=== PATIENT | female | born 1965 | race Caucasian/White ===

== ENCOUNTER → 2019-01-15 | Outpatient (REF) | payer MEDICARE, MEDICAID ==
[~2019-01-15] MED LIST: CIPR500T89 PO; FLAG500T PO; KLON1TAB PO; OMEP40CA2 PO; ONDA-1 PO; QUES4POW2 PO; SIME80TA PO; TYLE325T5 PO; VANC250C PO
[2019-01-15 15:22] LABS: APPEARANCE, URINE HAZY (CLEAR); BACTERIA, URINE AUTO NEGATIVE (NEGATIVE); BILIRUBIN, URINE AUTO NEGATIVE (NEGATIVE); BLOOD, URINE BLOOD 1+ (NEGATIVE); COLOR, URINE YELLOW (YELLOW); GLUCOSE, URINE (UA) AUTO NEGATIVE (NEGATIVE); KETONE, URINE AUTO NEGATIVE (NEGATIVE); LEUKOCYTE ESTERASE, URINE AUTO 1+ (NEGATIVE); MUCUS, URINE SMALL (NEGATIVE); NITRITE, URINE AUTO NEGATIVE (NEGATIVE); PROTEIN, URINE AUTO NEGATIVE (NEGATIVE); RBC, URINE AUTO 1 /HPF (0-3); SPECIFIC GRAVITY URINE AUTO 1.019 (1.002-1.035); SQUAMOUS EPITHELIAL CELL UR AU 6 /HPF (0-6); UROBILINOGEN, URINE AUTO 0.2 mg/dL (0.0-2.0); WBC, URINE AUTO 6 /HPF (0-3)
[2019-01-15 15:23] LABS: BASO # 0.1 10^3/uL (0.0-0.2); BASO % 0.5 % (0.0-1.0); EOS # 0.3 10^3/uL (0.0-0.5); EOS % 2.4 % (0.0-3.0); HEMATOCRIT 48.6 % (36.0-47.0); HEMOGLOBIN 15.7 g/dl (12.0-15.5); LYMPH % 27.6 % (24.0-44.0); MEAN CORPUSCULAR HEMOGLOBIN 28.5 pg (27.0-33.0); MEAN CORPUSCULAR HGB CONC 32.3 g/dl (32.0-36.5); MEAN CORPUSCULAR VOLUME 88.4 fl (80.0-96.0); MONO # 0.6 10^3/uL (0.0-0.8); MONO % 5.7 % (0.0-5.0); NEUTROPHILS # 6.8 10^3/uL (1.5-8.5); NEUTROPHILS % 63.3 % (36.0-66.0); PLATELET COUNT, AUTOMATED 345 10^3/uL (150-450); WHITE BLOOD COUNT 10.7 10^3/uL (4.0-10.0)
[2019-01-15 15:30] LABS: ALBUMIN 4.1 GM/DL (3.2-5.2); BILIRUBIN,TOTAL 0.5 MG/DL (0.2-1.0); CALCIUM LEVEL 9.8 MG/DL (8.5-10.1); CHOLESTEROL RISK RATIO 7.428 (<5); CREATININE FOR GFR 1.02 MG/DL (0.55-1.30); FREE T4 0.93 NG/DL (0.76-1.46); GLOMERULAR FILTRATION RATE 59.9 (>51); POTASSIUM SERUM 4.2 MEQ/L (3.5-5.1); TOTAL PROTEIN 8.6 GM/DL (6.4-8.2)
[2019-01-15 15:39] LABS: HEMOGLOBIN A1c 6.1 %; TOTAL 25(OH) VITAMIN D 13.5 NG/ML (30.0-100.0)
== END ==
LOC: M LAB REF 14:27
PROVIDERS: ATTEND Nurse Practitioner Family
DX: Z13.9 Encounter for screening, unspecified (principal); Z79.899 Other long term (current) drug therapy

== ENCOUNTER → 2019-01-20 | Outpatient (CLI) | payer MEDICAID, MEDICARE ==
--- NOTE | 2019-01-20 16:05 | REPMRS ---
Patient History The patient states she has not had a clinical breast exam in over a year. No known family history of cancer. Took hormonal contraceptives for 2 years. Digital Mammo Screening Bilat: January 20, 2019 - Exam #: [id number] Bilateral CC and MLO view(s) were taken. Technologist: Mary Lange, Technologist Prior study comparison: March 10, 2013, bilateral digital mammo screening bilat performed at [facility]. February 02, 2009, bilateral digital woman screen mammo performed at [facility]. FINDINGS: There are scattered fibroglandular densities. There has been no change in the appearance of the mammogram from the prior studies. There is a mild amount of scattered fibroglandular density which is fairly symmetric. There is no interval development of dominant mass, architectural distortion, or grouped microcalcification suggestive of malignancy. Assessment: BI-RADS/ACR category 1 mammogram. Negative Mammogram. Recommendation Routine screening mammogram of both breasts in 1 year (for women over age 40). This patient's Lifetime Breast Cancer Risk is estimated at 7.7 %. This mammogram was interpreted with the aid of an FDA-approved computer-aided dectection system. Electronically Signed By: Justin Saini MD 01/20/19 [id number]
== END ==
LOC: M RAD 11:29
PROVIDERS: ATTEND Nurse Practitioner Family
DX: Z12.39 Encounter for other screening for malignant neoplasm of breast (principal)

== ENCOUNTER 2019-03-11 01:28 | Observation (INO) | payer MEDICARE ==
[~2019-03-11] VITALS: Ht 154.9 cm; Wt 71.1 kg
[2019-03-11] MEDS ORDERED: GABA-845 PO (01:42)
[2019-03-11] MEDS ORDERED: MORPHINE 4 MG/ML 1ML VIAL/SYRINGE (J2270) IV ONE (02:00)
[2019-03-11 02:11] LABS: BASO # 0.1 10^3/uL (0.0-0.2); BASO % 0.3 % (0.0-1.0); EOS % 0.2 % (0.0-3.0); HEMATOCRIT 47.4 % (36.0-47.0); HEMOGLOBIN 15.1 g/dl (12.0-15.5); LYMPH # 1.6 10^3/uL (1.5-5.0); LYMPH % 8.2 % (24.0-44.0); MEAN CORPUSCULAR HGB CONC 31.9 g/dl (32.0-36.5); MEAN CORPUSCULAR VOLUME 87.9 fl (80.0-96.0); MONO # 0.7 10^3/uL (0.0-0.8); MONO % 3.6 % (0.0-5.0); NEUTROPHILS # 17.4 10^3/uL (1.5-8.5); NEUTROPHILS % 87.2 % (36.0-66.0); PLATELET COUNT, AUTOMATED 351 10^3/uL (150-450); RED BLOOD COUNT 5.39 10^6/uL (4.00-5.40); WHITE BLOOD COUNT 19.9 10^3/uL (4.0-10.0)
[2019-03-11] MEDS: NS 1,000 ML IV SCH ×4 (02:14→21:25)
[2019-03-11 02:42] LABS: CALCIUM LEVEL 9.7 MG/DL (8.5-10.1); CREATININE FOR GFR 1.08 MG/DL (0.55-1.30); GLOMERULAR FILTRATION RATE 56.1 (>51); POTASSIUM SERUM 5.1 MEQ/L (3.5-5.1)
[2019-03-11] MEDS ORDERED: ISOVUE-370 76% 100ML VIAL (Q9967) As Ordered ONE (02:44)
--- NOTE | 2019-03-11 03:48 | REPVR ---
PROCEDURE INFORMATION: Exam: CT Cervical Spine Without Contrast Exam date and time: 03/11/2019 2:52 AM Age: 53 years old Clinical history: Neck pain; Additional info: Trauma TECHNIQUE: Imaging protocol: Computed tomography images of the cervical spine without contrast. Radiation optimization: All CT scans at this facility use at least one of these dose optimization techniques: automated exposure control; mA and/or kV adjustment per patient size (includes targeted exams where dose is matched to clinical indication); or iterative reconstruction. COMPARISON: No relevant prior studies available. FINDINGS: Vertebrae: No fracture or malalignment. Discs/Spinal canal/Neural foramina: Mild discogenic degenerative changes. No spinal stenosis. Advanced facet DJD without significant foraminal stenosis. Soft tissues: Unremarkable. Lungs: Lung apices are normal. IMPRESSION: 1. No fracture or malalignment. 2. Degenerative spondylosis in the cervical spine. Electronically signed by: Vasyl Rider On 03/11/2019 03:48:07 AM
--- NOTE | 2019-03-11 03:51 | REPVR ---
PROCEDURE INFORMATION: Exam: CT Head Without Contrast Exam date and time: 03/11/2019 2:52 AM Age: 53 years old Clinical history: Pain; Headache; Additional info: Trauma TECHNIQUE: Imaging protocol: Computed tomography of the head without contrast. Radiation optimization: All CT scans at this facility use at least one of these dose optimization techniques: automated exposure control; mA and/or kV adjustment per patient size (includes targeted exams where dose is matched to clinical indication); or iterative reconstruction. COMPARISON: No relevant prior studies available. FINDINGS: Brain: There is generalized cerebellar atrophy. No significant supratentorial atrophy. Small cyst in the left basal ganglia. No intracranial hemorrhage or mass effect. No signs of a recent infarct. Ventricles: Normal. No ventriculomegaly. Bones/joints: Unremarkable. No acute fracture. Sinuses: Visualized sinuses are unremarkable. No fluid levels. Mastoid air cells: Visualized mastoid air cells are well aerated. Soft tissues: Unremarkable. IMPRESSION: 1. Isolated cerebellar atrophy. 2. No acute intracranial abnormality. Electronically signed by: Vasyl Rider On 03/11/2019 03:51:44 AM
--- NOTE | 2019-03-11 03:59 | REPVR ---
PROCEDURE INFORMATION: Exam: CT Abdomen And Pelvis With Contrast Exam date and time: 03/11/2019 2:52 AM Age: 53 years old Clinical history: Abdominal pain; Generalized; Additional info: Trauma TECHNIQUE: Imaging protocol: Computed tomography of the abdomen and pelvis with intravenous contrast. Radiation optimization: All CT scans at this facility use at least one of these dose optimization techniques: automated exposure control; mA and/or kV adjustment per patient size (includes targeted exams where dose is matched to clinical indication); or iterative reconstruction. Contrast material: ISOVUE 370; Contrast volume: 100 ml; Contrast route: IV; COMPARISON: CT ABD PELVIS WITH CONTRAST 08/07/2012 9:36 PM FINDINGS: Lungs: Hypoventilatory changes in the lung bases. Liver: Normal. No mass. Gallbladder and bile ducts: Normal. No calcified stones. No ductal dilation. Pancreas: Normal. No ductal dilation. Spleen: Normal. No splenomegaly. Adrenals: Normal. No mass. Kidneys and ureters: Normal. No hydronephrosis. Stomach and bowel: Unremarkable. No obstruction. No mucosal thickening. Appendix: No evidence of appendicitis. Intraperitoneal space: Unremarkable. No free air. No significant fluid collection. Vasculature: Unremarkable. No abdominal aortic aneurysm. Lymph nodes: Unremarkable. No enlarged lymph nodes. Bladder: Unremarkable as visualized. Reproductive: Unremarkable as visualized. Bones/joints: Nondisplaced left eighth-10th rib fractures. Soft tissues: Small amount of subcutaneous gas in the left chest wall adjacent to the fractures. IMPRESSION: 1. Left 8th-10th rib fractures. 2. No acute findings in the abdomen or pelvis. Electronically signed by: Vasyl Rider On 03/11/2019 03:58:41 AM
--- NOTE | 2019-03-11 04:02 | REPVR ---
PROCEDURE INFORMATION: Exam: CT Lumbar Spine Without Contrast Exam date and time: 03/11/2019 2:52 AM Age: 53 years old Clinical history: Low back pain; Additional info: Trauma TECHNIQUE: Imaging protocol: Computed tomography images of the lumbar spine without contrast. Radiation optimization: All CT scans at this facility use at least one of these dose optimization techniques: automated exposure control; mA and/or kV adjustment per patient size (includes targeted exams where dose is matched to clinical indication); or iterative reconstruction. COMPARISON: MRI-Spine, L.S. without con 03/10/2013 12:19 PM FINDINGS: Vertebrae: No fracture or malalignment. Discs/Spinal canal/Neural foramina: Mild discogenic degenerative changes. No spinal stenosis or bony foraminal stenosis. Soft tissues: Unremarkable. IMPRESSION: No fracture or malalignment. Electronically signed by: Vasyl Rider On 03/11/2019 04:02:27 AM
--- NOTE | 2019-03-11 04:09 | REPVR ---
PROCEDURE INFORMATION: Exam: CT Chest With Contrast Exam date and time: 03/11/2019 2:52 AM Age: 53 years old Clinical history: Chest pain; Additional info: Trauma TECHNIQUE: Imaging protocol: Computed tomography of the chest with intravenous contrast. Radiation optimization: All CT scans at this facility use at least one of these dose optimization techniques: automated exposure control; mA and/or kV adjustment per patient size (includes targeted exams where dose is matched to clinical indication); or iterative reconstruction. Contrast material: ISOVUE 370; Contrast volume: 100 ml; Contrast route: IV; COMPARISON: No relevant prior studies available. FINDINGS: Lungs: Mild atelectasis in the lungs. No airspace consolidation or mass. Pleural space: Unremarkable. No pneumothorax. No pleural effusion. Heart: Unremarkable. No cardiomegaly. No pericardial effusion. Aorta: Unremarkable. No aortic aneurysm. Lymph nodes: Unremarkable. No enlarged lymph nodes. Bones/joints: Fractures of the left eighth-10th posterior lateral ribs. Small foci of subcutaneous emphysema adjacent to the left rib fractures. Soft tissues: Unremarkable. IMPRESSION: 1. Left eighth-10th posterior rib fractures. 2. No other acute findings. Electronically signed by: Vasyl Rider On 03/11/2019 04:09:33 AM
--- NOTE | 2019-03-11 04:12 | REPVR ---
PROCEDURE INFORMATION: Exam: CT Thoracic Spine Without Contrast Exam date and time: 03/11/2019 2:52 AM Age: 53 years old Clinical history: Pain in thoracic spine; Additional info: Trauma TECHNIQUE: Imaging protocol: Computed tomography images of the thoracic spine without contrast. Radiation optimization: All CT scans at this facility use at least one of these dose optimization techniques: automated exposure control; mA and/or kV adjustment per patient size (includes targeted exams where dose is matched to clinical indication); or iterative reconstruction. COMPARISON: No relevant prior studies available. FINDINGS: Vertebrae: No fracture or malalignment. Mild endplate degenerative changes. No destructive bone lesions. Discs/Spinal canal/Neural foramina: No spinal stenosis. Soft tissues: Unremarkable. IMPRESSION: No fracture or malalignment. Electronically signed by: Vasyl Rider On 03/11/2019 04:12:20 AM
--- NOTE | 2019-03-11 04:55 | HPEPDOC ---
[facility] Medical History & Physical Date of Admission Mar 11, 2019 Date of Service: Mar 11, 2019 Primary Care Physician: Aki Stevenson Attending Physician: MARVIN BURTON MD History and Physical TIME OF SERVICE: 6:10 AM CHIEF COMPLAINT: Fall HISTORY OF PRESENT ILLNESS: This is a 53-year-old female who presents for evaluation after having a fall. At her baseline she has an unsteady gait due to cerebral ataxia and uses a walker. She has been falling more frequently recently. Last night while trying to get ready for bed, she tripped and fell onto her left side as a result developed left sided flank pain. She denies having fevers or chills. She is also complaining of cough and myalgias. 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 ( Uses walker) Status post 2 Status post-tonsillectomy Chronic hypertension. Dyslipidemia SOCIAL HISTORY: She quit smoking several years ago. She lives alone FAMILY HISTORY: Emphysema. Epilepsy. Nephrolithiasis COPD CAD ALLERGIES: Please see below. HOME MEDICATIONS: Please see below. PHYSICAL EXAMINATION: VITAL SIGNS: Please see below. GENERAL APPEARANCE: Nourished, well-developed, not in apparent distress HEENT: Normocephalic, atraumatic Mucous membranes moist and pink CARDIOVASCULAR: Rate and rhythm. No murmurs, rubs or gallops LUNGS: Clear to auscultation bilaterally. Based coughing occasionally ABDOMEN: Positive bowel sounds. Abdomen soft and nontender on palpation MUSCULOSKELETAL: Alert and oriented to person, place, time, able to understand and follow commands INTEGUMENT: She does not appear pale or jaundice NEUROLOGICAL: Cranial nerves II-12 are grossly intact. Speech is slowly dysar thric PSYCHIATRIC:, Alert and oriented to person & place. She is able to understand and follow commands LABORATORY DATA: See below. IMAGING: CT Thoracic spine " IMPRESSION: No fracture or malalignment. " CT Lumbar spine. " IMPRESSION: No fracture or malalignment. " CT head " IMPRESSION: 1. Isolated cerebellar atrophy. 2. No acute intracranial abnormality. " CT chest " IMPRESSION: 1. Left eighth-10th posterior rib fractures. 2. No other acute findings. " CT cervical spine " IMPRESSION: 1. No fracture or malalignment. 2. Degenerative spondylosis in the cervical spine. " CT abdomen and pelvis " IMPRESSION: 1. Left 8th-10th rib fractures. 2. No acute findings in the abdomen or pelvis. " ASSESSMENT: Ms. Walls is a 53-year-old with a past medical history cerebellar ataxia who will be admitted for management of pain related to left rib fractures. PLAN: 1.Left eighth to 10th rib fracture secondary to mechanical fall She has an unsteady gait at baseline Plan: Admit to medical floor/fall precautions/physical therapy eval/ orthostats / PFS consult to determine if she needs temp replacement / tramadol and ibuprofen for pain control/is and this prompted tree 2.Leukocytosis Possibly due to viral URI. Plan: Follow-up is better panel/Tessalon pearls / Monitor vitals 3.Chronic hypertension. Plan: Continue lisinopril 4.Dyslipidemia. Plan: Continue statin DVT prophylaxis with Lovenox. Disposition likely home after less than 2 midnight stay Vital Signs Vital Signs Date Time Temp Pulse Resp B/P (MAP) Pulse Ox O2 Delivery O2 Flow Rate FiO2 03/11/19 02:45 140/76 (97) 03/11/19 02:43 82 90 03/11/19 02:30 18 03/11/19 01:37 98.2 Room Air Laboratory Data Labs 24H Laboratory Tests 2 03/11/19 02:06: Immature Granulocyte % (Auto) 0.5, Neutrophils (%) (Auto) 87.2H, Lymphocytes (%) (Auto) 8.2L, Monocytes (%) (Auto) 3.6, Eosinophils (%) (Auto) 0.2, Basophils (%) (Auto) 0.3, Neutrophils # (Auto) 17.4H, Lymphocytes # (Auto) 1.6, Monocytes # (Auto) 0.7, Eosinophils # (Auto) 0.0, Basophils # (Auto) 0.1, Nucleated Red Blood Cells % (auto) 0.0, Anion Gap 7L, Glomerular Filtration Rate 56.1, Calcium Level 9.7 CBC/BMP Laboratory Tests 03/11/19 02:06 Home Medications Scheduled Benzonatate (Benzonatate) 100 Mg Capsule, 200 MG PO Q8H Ergocalciferol (Vitamin D2) (Vitamin D2) 50,000 Unit Capsule, 50,000 UNIT PO 1XWK FRIDAY MORNINGS Gabapentin (Gabapentin) 300 Mg Capsule, 300 MG PO TID Lisinopril (Lisinopril) 10 Mg Tablet, 10 MG PO DAILY Rosuvastatin Calcium (Crestor) 10 Mg Tablet, 10 MG PO DAILY Scheduled PRN Acetaminophen (Acetaminophen) 325 Mg Tablet, 650 MG PO Q4H PRN for PAIN OR FEVER Clonazepam (Clonazepam) 1 Mg Tablet, 1 MG PO BID PRN for ANXIETY Tramadol HCl (Tramadol HCl ER) 200 Mg Tab.er.24h, 200 MG PO DAILYPRN PRN for pain Allergies Coded Allergies: Sulfa (Sulfonamide Antibiotics) (Verified Allergy, Unknown, 03/11/19) A-FIB/CHADSVASC A-FIB History Current/History of A-Fib/PAF?: No Current PO Anticoag Therapy: No MARVIN BURTON MD Mar 11, 2019 04:55
[2019-03-11] MEDS ORDERED: ACET-897 PO (05:00)
[2019-03-11] MEDS ORDERED: VITA50005 PO (05:00)
[2019-03-11] MEDS ORDERED: ACETAMINOPHEN TAB 650MG DOSE (2X325MG) PO PRN (05:00)
[2019-03-11] MEDS ORDERED: GABA-843 PO (05:00)
[2019-03-11] MEDS ORDERED: CRES10TA PO (05:00)
[2019-03-11] MEDS ORDERED: LISI10TA4 PO (05:00)
[2019-03-11] MEDS ORDERED: CLON1TAB8 PO (05:00)
[2019-03-11 05:45] VITALS: BP 139/93
[2019-03-11] MEDS: traMADol ER 100MG TABLET (ULTRAM ER) PO SCH (05:51)
[2019-03-11 06:38] LABS: INFLUENZA A AMPLIFICATION NEGATIVE (NEGATIVE); INFLUENZA B AMPLIFICATION NEGATIVE (NEGATIVE)
[2019-03-11] MEDS ORDERED: clonazePAM 1 MG TAB PO PRN (06:45)
[2019-03-11] MEDS: BENZONATATE 100 MG CAP PO SCH ×3 (06:58→21:24)
[2019-03-11] MEDS: IBUPROFEN 600 MG TAB PO SCH ×2 (07:52→21:25)
[2019-03-11] MEDS: ROSUVASTATIN 10 MG TAB (CRESTOR) PO SCH (07:52)
[2019-03-11] MEDS: GABAPENTIN 300 MG CAP PO SCH ×3 (07:52→21:24)
[2019-03-11] MEDS: lisinopriL 10 MG TAB PO SCH (07:54)
[2019-03-11] MEDS ORDERED: MORPHINE 2 MG/ML 1ML VIAL (J2270) IV PRN (09:45)
[2019-03-11 12:00] VITALS: BP_SYST 166; BP_SYST 168; BP_SYST 171; BP_DIAS 100; BP_DIAS 108; BP_DIAS 99
[2019-03-11] MEDS ORDERED: MORPHINE 2 MG/ML 1ML VIAL (J2270) IV ONE (12:15)
[2019-03-11 14:00] VITALS: BP 142/76
--- NOTE | 2019-03-11 17:12 | IPNPDOC ---
Text Note Date of Service The patient was seen on 03/11/19. NOTE Subjective: Patient complains of severe left chest pain increased with inhala tion, the pain is 9 out of 10. Patient denies fever, chills, nausea, vomiting, diarrhea or dysuria Objective: Please see below. GENERAL APPEARANCE: In severe distress female patient HEENT: Normocephalic, atraumatic. Mucous members moist and pink CARDIOVASCULAR: Regular rate and rhythm. No murmurs, rubs or gallops. Radial pulses are intact. There is no lower extremity edema LUNGS: Diminished lung sounds, ABDOMEN: Bowel sounds are hypoactive. Abdomen is soft and nontender. MUSCULOSKELETAL: Range of motion is intact in all 4 extremities NEUROLOGICAL: Cranial nerves II-12 are grossly intact. No nuchal rigidity, moves 4 limbs, unsteady gait due to cerebellar dysfunction 53-year-old with a past medical history cerebellar ataxia who will be admitted for management of pain related to left rib fractures. PLAN: 1. Left eighth to 10th rib fracture secondary to mechanical fall unsteady gait at baseline due to cerebellar dysfunction Pain management Incentive spirometry 2. Leukocytosis Most likely reactive, patient is afebrile, does not have cough, diarrhea. 3. Chronic hypertension. Continue lisinopril 4. Dyslipidemia. Continue statin VS,Fishbone, I+O VS, Fishbone, I+O Laboratory Tests 03/11/19 02:06 Vital Signs Date Time Temp Pulse Resp B/P (MAP) Pulse Ox O2 Delivery O2 Flow Rate FiO2 03/11/19 14:00 98.0 90 18 142/76 (98) 97 Room Air I&O- Last 24 Hours up to 6 AM 03/11/19 06:00 Intake Total 1000 ml Balance 1000 ml NÉSTOR MOREAU DO Mar 11, 2019 17:12
[2019-03-11] MEDS: MORPHINE 2 MG/ML 1ML VIAL (J2270) IV PRN (17:14)
[2019-03-11 22:00] VITALS: BP 120/90
[2019-03-12] MEDS: MORPHINE 2 MG/ML 1ML VIAL (J2270) IV PRN (00:28)
[2019-03-12 00:31] VITALS: BP_SYST 123; BP_SYST 143; BP_SYST 147; BP_DIAS 89; BP_DIAS 90; BP_DIAS 93
[2019-03-12 02:00] VITALS: BP 113/51
[2019-03-12] MEDS: BENZONATATE 100 MG CAP PO SCH ×2 (05:07→13:48)
[2019-03-12] MEDS: NS 1,000 ML IV SCH (05:07)
[2019-03-12 06:00] VITALS: BP 148/89
[2019-03-12 06:22] LABS: MEAN CORPUSCULAR VOLUME 90.3 fl (80.0-96.0); PLATELET COUNT, AUTOMATED 274 10^3/uL (150-450); RED BLOOD COUNT 4.65 10^6/uL (4.00-5.40); WHITE BLOOD COUNT 9.8 10^3/uL (4.0-10.0)
[2019-03-12 06:54] LABS: BLOOD UREA NITROGEN 12 MG/DL (7-18); CALCIUM LEVEL 8.4 MG/DL (8.5-10.1); CARBON DIOXIDE LEVEL 26 MEQ/L (21-32); CHLORIDE LEVEL 112 MEQ/L (98-107); CREATININE FOR GFR 0.77 MG/DL (0.55-1.30); GLOMERULAR FILTRATION RATE > 60.0 (>51); GLUCOSE, FASTING 102 MG/DL (70-100); MAGNESIUM LEVEL 2.2 MG/DL (1.8-2.4); SODIUM LEVEL 142 MEQ/L (136-145)
[2019-03-12 10:46] VITALS: BP 150/92
[2019-03-12] MEDS: GABAPENTIN 300 MG CAP PO SCH (10:46)
[2019-03-12] MEDS: lisinopriL 10 MG TAB PO SCH (10:46)
[2019-03-12] MEDS: ROSUVASTATIN 10 MG TAB (CRESTOR) PO SCH (10:47)
[2019-03-12] MEDS: traMADol ER 100MG TABLET (ULTRAM ER) PO SCH (10:47)
[2019-03-12] MEDS: IBUPROFEN 600 MG TAB PO SCH (10:47)
[2019-03-12] MEDS ORDERED: clonazePAM 1 MG TAB PO SCH (12:15)
--- NOTE | 2019-03-12 12:47 | IPNPDOC ---
Text Note Date of Service The patient was seen on 03/12/19. NOTE Subjective: Patient complains of left chest pain increased with inhalation, the pain significantly subsided today. Patient denies fever, chills, nausea, vomiting, diarrhea or dysuria Objective: Please see below. GENERAL APPEARANCE: In severe distress female patient HEENT: Normocephalic, atraumatic. Mucous members moist and pink CARDIOVASCULAR: Regular rate and rhythm. No murmurs, rubs or gallops. Radial pulses are intact. There is no lower extremity edema LUNGS: Diminished lung sounds, ABDOMEN: Bowel sounds are hypoactive. Abdomen is soft and nontender. MUSCULOSKELETAL: Range of motion is intact in all 4 extremities NEUROLOGICAL: Cranial nerves II-12 are grossly intact. No nuchal rigidity, moves 4 limbs, unsteady gait due to cerebellar dysfunction 53-year-old with a past medical history cerebellar ataxia who will be admitted for management of pain related to left rib fractures. PLAN: 1. Left eighth to 10th rib fracture secondary to mechanical fall unsteady gait at baseline due to cerebellar dysfunction Pain management Incentive spirometry PT/OT evaluated her, she is not safe in home environment 2. Leukocytosis Most likely reactive, patient is afebrile, does not have cough, diarrhea. Resolved 3. Chronic hypertension. Continue lisinopril 4. Dyslipidemia. Continue statin VS,Fishbone, I+O VS, Fishbone, I+O Laboratory Tests 03/12/19 05:53 Vital Signs Date Time Temp Pulse Resp B/P (MAP) Pulse Ox O2 Delivery O2 Flow Rate FiO2 03/12/19 10:46 150/92 03/12/19 06:00 97.6 75 16 93 Room Air I&O- Last 24 Hours up to 6 AM 03/12/19 06:00 Intake Total 3860 ml Output Total 1350 ml Balance 2510 ml NÉSTOR MOREAU DO Mar 12, 2019 12:47
[2019-03-12] MEDS ORDERED: ACET1TAB55 PO (13:35)
[2019-03-12] MEDS ORDERED: TRAM200T23 PO (13:35)
[2019-03-12] MEDS ORDERED: BENZ-18 PO (13:35)
--- NOTE | 2019-03-12 22:18 | DS.PDOC ---
Discharge Summary General Date of Admission Mar 11, 2019 at 17:14 Date of Discharge 03/12/19 Discharge Summary PROCEDURES PERFORMED DURING STAY: [None]. ADMITTING DIAGNOSES: Left eighth to 10th rib fracture secondary to mechanical fall Leukocytosis Chronic hypertension Dyslipidemia. DISCHARGE DIAGNOSES: Left eighth to 10th rib fracture secondary to mechanical fall Leukocytosis Chronic hypertension Dyslipidemia. COMPLICATIONS/CHIEF COMPLAINT: Fall,Rib Fracture. HISTORY OF PRESENT ILLNESS: This is a 53-year-old female who presents for evaluation after having a fall. At her baseline she has an unsteady gait due to cerebral ataxia and uses a walker. She has been falling more frequently recently. Last night while trying to get ready for bed, she tripped and fell onto her left side as a result developed left sided flank pain. She denies having fevers or chills. HOSPITAL COURSE: During hospital stay the following issue addressed 1. Left eighth to 10th rib fracture secondary to mechanical fall unsteady gait at baseline due to cerebellar dysfunction Patient received Pain management Incentive spirometry PT/OT evaluated her, recommended home with home health 2. Leukocytosis Most likely reactive, patient is afebrile, does not have cough, diarrhea. Resolved 3. Chronic hypertension. Continue lisinopril 4. Dyslipidemia. Continue statin DISCHARGE MEDICATIONS: Please see below. ALLERGIES: Please see below. PHYSICAL EXAMINATION ON DISCHARGE: VITAL SIGNS: Please see below. GENERAL APPEARANCE: Nourished, well-developed, not in apparent distress HEENT: Normocephalic, atraumatic Mucous membranes moist and pink CARDIOVASCULAR: Rate and rhythm. No murmurs, rubs or gallops LUNGS: Clear to auscultation bilaterally. Based coughing occasionally ABDOMEN: Positive bowel sounds. Abdomen soft and nontender on palpation MUSCULOSKELETAL: Alert and oriented to person, place, time, able to understand and follow commands INTEGUMENT: She does not appear pale or jaundice NEUROLOGICAL: Cranial nerves II-12 are grossly intact. Speech is slowly dysarthric PSYCHIATRIC:, Alert and oriented to person & place. She is able to understand and follow commands LABORATORY DATA: Please see below. IMAGING: Exam: CT Chest With Contrast Exam date and time: 03/11/2019 2:52 AM Age: 53 years old Clinical history: Chest pain; Additional info: Trauma TECHNIQUE: Imaging protocol: Computed tomography of the chest with intravenous contrast. Radiation optimization: All CT scans at this facility use at least one of these dose optimization techniques: automated exposure control; mA and/or kV adjustment per patient size (includes targeted exams where dose is matched to clinical indication); or iterative reconstruction. Contrast material: ISOVUE 370; Contrast volume: 100 ml; Contrast route: IV; COMPARISON: No relevant prior studies available. FINDINGS: Lungs: Mild atelectasis in the lungs. No airspace consolidation or mass. Pleural space: Unremarkable. No pneumothorax. No pleural effusion. Heart: Unremarkable. No cardiomegaly. No pericardial effusion. Aorta: Unremarkable. No aortic aneurysm. Lymph nodes: Unremarkable. No enlarged lymph nodes. Bones/joints: Fractures of the left eighth-10th posterior lateral ribs. Small foci of subcutaneous emphysema adjacent to the left rib fractures. Soft tissues: Unremarkable. IMPRESSION: 1. Left eighth-10th posterior rib fractures. 2. No other acute findings. PROGNOSIS: Favorable ACTIVITY: As tolerated DIET: Cardiac DISCHARGE PLAN: Home with home health DISCHARGE INSTRUCTIONS: Continue incentive spirometry ITEMS TO FOLLOWUP ON ON OUTPATIENT: Follow-up with PCP DISCHARGE CONDITION:Stable TIME SPENT ON DISCHARGE: Greater than 20 minutes. Vital Signs/I&Os Vital Signs Date Time Temp Pulse Resp B/P (MAP) Pulse Ox O2 Delivery O2 Flow Rate FiO2 03/12/19 10:46 150/92 03/12/19 06:00 97.6 75 16 93 Room Air I&O- Last 24 Hours up to 6 AM 03/12/19 06:00 Intake Total 3860 ml Output Total 1350 ml Balance 2510 ml Laboratory Data Labs 24H Laboratory Tests 2 03/12/19 05:53: Nucleated Red Blood Cells % (auto) 0.0, Anion Gap 4L, Glomerular Filtration Rate > 60.0, Calcium Level 8.4L, Magnesium Level 2.2 CBC/BMP Laboratory Tests 03/12/19 05:53 Discharge Medications Scheduled Benzonatate (Benzonatate) 100 Mg Capsule, 200 MG PO Q8H Ergocalciferol (Vitamin D2) (Vitamin D2) 50,000 Unit Capsule, 50,000 UNIT PO 1XWK, (Reported) FRIDAY MORNINGS Gabapentin (Gabapentin) 300 Mg Capsule, 300 MG PO TID, (Reported) Lisinopril (Lisinopril) 10 Mg Tablet, 10 MG PO DAILY, (Reported) Rosuvastatin Calcium (Crestor) 10 Mg Tablet, 10 MG PO DAILY, (Reported) Scheduled PRN Acetaminophen (Acetaminophen) 325 Mg Tablet, 650 MG PO Q4H PRN for PAIN OR FEVER Clonazepam (Clonazepam) 1 Mg Tablet, 1 MG PO BID PRN for ANXIETY, (Reported) Tramadol HCl (Tramadol HCl ER) 200 Mg Tab.er.24h, 200 MG PO DAILYPRN PRN for pain Allergies Coded Allergies: Sulfa (Sulfonamide Antibiotics) (Verified Allergy, Unknown, 03/11/19) NÉSTOR MOREAU DO Mar 12, 2019 22:18
== END 2019-03-12 15:11 | disposition home or self-care (01) ==
LOC: M ED 01:28 → INTOOBSV 04:49 → M ED INP 04:49 → UNDOADMOB 04:49 → M MSPAV 05:42 → M ED INP 05:42 → M MSPAV 17:14
PROVIDERS: ADMIT Internal Medicine; ATTEND Internal Medicine
DX: S22.42XA Multiple fractures of ribs, left side, initial encounter for closed fracture (principal); W01.0XXA Fall on same level from slipping, tripping and stumbling without subsequent striking against object, initial encounter; Y92.092 Bedroom in other non-institutional residence as the place of occurrence of the external cause; Y93.E8 Activity, other personal hygiene; Y99.8 Other external cause status; D72.829 Elevated white blood cell count, unspecified; I10 Essential (primary) hypertension; E78.5 Hyperlipidemia, unspecified; R07.9 Chest pain, unspecified; R26.81 Unsteadiness on feet; G93.89 Other specified disorders of brain; M47.812 Spondylosis without myelopathy or radiculopathy, cervical region; Z99.89 Dependence on other enabling machines and devices; M54.9 Dorsalgia, unspecified; R05 Cough; M79.10 Myalgia, unspecified site; K52.9 Noninfective gastroenteritis and colitis, unspecified; Z79.899 Other long term (current) drug therapy; Z88.2 Allergy status to sulfonamides; Z87.891 Personal history of nicotine dependence
CPT/HCPCS: 36415; 70450; 71260; 72125; 72128; 72131; 74177; 80048; 83735; 85025; 85027; 87631; 93041; 94760; 96361; 96374; 96376; 97161; 97165; 97530; 97535; 99285; G0378; J2270; Q9967

== ENCOUNTER → 2019-05-27 | Outpatient (REF) | payer MEDICARE, MEDICAID ==
[~2019-05-27] MED LIST changes: +ACET-897 PO; +ACET1TAB55 PO; +BENZ-18 PO; +CLON1TAB8 PO; +CRES10TA PO; +GABA-843 PO; +GABA-845 PO; +LISI10TA4 PO; +TRAM200T23 PO; +VITA50005 PO
[2019-05-27 13:56] LABS: BASO # 0.1 10^3/uL (0.0-0.2); BASO % 0.6 % (0.0-1.0); EOS # 0.3 10^3/uL (0.0-0.5); HEMATOCRIT 45.4 % (36.0-47.0); HEMOGLOBIN 14.5 g/dl (12.0-15.5); LYMPH # 3.1 10^3/uL (1.5-5.0); LYMPH % 37.7 % (24.0-44.0); MEAN CORPUSCULAR HEMOGLOBIN 28.6 pg (27.0-33.0); MEAN CORPUSCULAR HGB CONC 31.9 g/dl (32.0-36.5); MEAN CORPUSCULAR VOLUME 89.5 fl (80.0-96.0); MONO # 0.6 10^3/uL (0.0-0.8); MONO % 7.3 % (0.0-5.0); NEUTROPHILS # 4.1 10^3/uL (1.5-8.5); NEUTROPHILS % 50.2 % (36.0-66.0); PLATELET COUNT, AUTOMATED 307 10^3/uL (150-450); RED BLOOD COUNT 5.07 10^6/uL (4.00-5.40); WHITE BLOOD COUNT 8.2 10^3/uL (4.0-10.0)
[2019-05-27 14:15] LABS: HEMOGLOBIN A1c 5.8 %
[2019-05-27 14:18] LABS: BILIRUBIN,TOTAL 0.4 MG/DL (0.2-1.0); CALCIUM LEVEL 9.8 MG/DL (8.5-10.1); CHOLESTEROL RISK RATIO 4.744 (<5); CREATININE FOR GFR 1.04 MG/DL (0.55-1.30); GLOMERULAR FILTRATION RATE 58.6 (>51); POTASSIUM SERUM 4.4 MEQ/L (3.5-5.1); TOTAL 25(OH) VITAMIN D 61.4 NG/ML (30.0-100.0); TOTAL PROTEIN 7.7 GM/DL (6.4-8.2)
== END ==
LOC: M LAB REF 13:28
PROVIDERS: ATTEND Nurse Practitioner Family
DX: F41.1 Generalized anxiety disorder (principal); E78.5 Hyperlipidemia, unspecified; E55.9 Vitamin D deficiency, unspecified; R73.03 Prediabetes; Z79.899 Other long term (current) drug therapy

== ENCOUNTER 2019-06-28 19:17 | Emergency (ER) | payer MEDICARE, MEDICAID ==
[~2019-06-28] VITALS: Ht 154.9 cm; Wt 68.2 kg
[2019-06-28] MEDS ORDERED: NS 1,000 ML IV ONE (20:00)
[2019-06-28] MEDS ORDERED: ONDANSETRON 4MG/2ML VIAL (J2405) IV ONE (20:00)
[2019-06-28] MEDS ORDERED: KETOROLAC 30 MG/ML VIAL (J1885) IV ONE (20:00)
[2019-06-28 20:36] LABS: BASO # 0.1 10^3/uL (0.0-0.2); BASO % 0.4 % (0.0-1.0); EOS # 0.2 10^3/uL (0.0-0.5); EOS % 1.2 % (0.0-3.0); HEMATOCRIT 47.5 % (36.0-47.0); HEMOGLOBIN 15.9 g/dl (12.0-15.5); LYMPH # 2.7 10^3/uL (1.5-5.0); LYMPH % 13.7 % (24.0-44.0); MEAN CORPUSCULAR HEMOGLOBIN 29.2 pg (27.0-33.0); MEAN CORPUSCULAR HGB CONC 33.5 g/dl (32.0-36.5); MEAN CORPUSCULAR VOLUME 87.2 fl (80.0-96.0); MONO % 4.8 % (0.0-5.0); NEUTROPHILS # 15.9 10^3/uL (1.5-8.5); NEUTROPHILS % 79.5 % (36.0-66.0); PLATELET COUNT, AUTOMATED 313 10^3/uL (150-450); RED BLOOD COUNT 5.45 10^6/uL (4.00-5.40)
[2019-06-28] MEDS ORDERED: ISOVUE-370 76% 100ML VIAL (Q9967) As Ordered ONE (20:43)
[2019-06-28 21:04] LABS: ALBUMIN 4.1 GM/DL (3.2-5.2); ALT/SGPT 24 U/L (12-78); BILIRUBIN,DIRECT < 0.1 MG/DL (0.0-0.2); BILIRUBIN,TOTAL 0.6 MG/DL (0.2-1.0); LIPASE 162 U/L (73-393); TOTAL PROTEIN 8.2 GM/DL (6.4-8.2)
[2019-06-28] MEDS ORDERED: MORPHINE 4 MG/ML 1ML VIAL/SYRINGE (J2270) IV PRN (21:15)
--- NOTE | 2019-06-28 21:23 | REPVR ---
PROCEDURE INFORMATION: Exam: CT Abdomen And Pelvis With Contrast Exam date and time: 06/28/2019 8:41 PM Age: 53 years old Clinical indication: Generalized abdominal pain. TECHNIQUE: Imaging protocol: Computed tomography of the abdomen and pelvis with intravenous contrast. Radiation optimization: All CT scans at this facility use at least one of these dose optimization techniques: automated exposure control; mA and/or kV adjustment per patient size (includes targeted exams where dose is matched to clinical indication); or iterative reconstruction. Contrast material: ISOVUE 370; Contrast volume: 100 ml; Contrast route: IV; COMPARISON: 1. CT ABD/PEL W/IV CONTRAST ONLY 03/11/2019 2:55 AM 2. Abdomen, limited US 08/07/2012 8:11:41 PM FINDINGS: Lungs: There is mild dependent atelectasis in both lower lobes. Heart: No cardiomegaly or pericardial effusion. Liver: The attenuation of the liver is more than 40 Hounsfield units lower in attenuation compared to the spleen, which is compatible with fatty liver infiltration. No liver lesion is seen. The contour of the liver is smooth. No hepatomegaly is noted. Gallbladder and bile ducts: No calcified gallstones are noted. No gallbladder wall thickening, pericholecystic fluid, or pericholecystic inflammatory changes are identified. No dilation of the intrahepatic or extrahepatic bile ducts is noted. Pancreas: Normal. No dilation of the main pancreatic duct is noted. There is no inflammatory fat stranding around the pancreas to suggest acute pancreatitis. Spleen: Normal. No splenomegaly is noted. Adrenals: Normal. No adrenal mass is noted. Kidneys and ureters: No calculi are seen in the kidneys or ureters. There is no hydronephrosis or hydroureter. There are no wedge-shaped areas of low attenuation in the kidneys to suggest pyelonephritis. There is no renal abscess or perinephric fluid collection. Incidental note is made of a 4 mm benign-appearing cyst in the midpole of the right kidney, which is unchanged compared to the prior CT abdomen and pelvis on 03/11/2019 and for which follow-up is not necessary (image 63 of the axial series 201). No solid renal mass is noted. Stomach and bowel: The stomach is unremarkable. There is thickening of the wall of a loop of small bowel in the lower mid abdomen with associated mucosal enhancement, submucosal edema, and mesenteric edema, which is compatible with an enteritis, and there are a few mildly dilated loops of small bowel containing fluid more proximally measuring up to 3 cm in diameter, which is secondary to a small bowel ileus. The large bowel is unremarkable. No pneumatosis intestinalis is noted. Appendix: Normal. There is no evidence for appendicitis. Intraperitoneal space: There is a trace amount of free fluid in the right lower quadrant of the abdomen and in the pelvis. No abscess or intraperitoneal free air is noted. Retroperitoneal space: No fluid collection. No mass. Vasculature: The abdominal aorta is patent, normal in caliber, and there is no dissection. The iliac arteries, common femoral arteries, renal arteries, celiac artery, superior mesenteric artery, and inferior mesenteric artery are patent. There is mild atherosclerotic plaque in the infrarenal abdominal aorta. The renal veins, hepatic veins, portal veins, splenic vein, superior mesenteric vein, and inferior mesenteric vein are patent. Lymph nodes: No enlarged lymph nodes. Bladder: The distended urinary bladder is normal in appearance. No stones or masses are seen in the bladder. Reproductive: The uterus is anterverted and unremarkable. The ovaries are unremarkable. Bones/joints: There are chronic fracture deformities involving the left posterior 8th, 9th, 10th, 11th, and 12 ribs and right posterior 10th rib. No acute fracture is noted. There are Schmorl's nodes at several levels in the imaged portion of the thoracic spine and in the lumbar spine. There are mild degenerative changes in the lumbar spine. No suspicious osteolytic or osteoblastic lesion is noted. Soft tissues: Unremarkable. No hernia. IMPRESSION: 1. Small bowel enteritis, which causes a mild small bowel ileus. 2. Fatty liver. Electronically signed by: Glenn Garcia On 06/28/2019 21:23:41 PM
[2019-06-28] MEDS ORDERED: ONDA4TAB6 PO (21:49)
[2019-06-28 22:00] VITALS: BP 139/72
[2019-06-28] MEDS ORDERED: OXYCODONE/APAP 5MG/325MG(BULK FOR ED) 1 TABLET PO ONE (22:00)
== END 2019-06-28 22:17 | disposition home or self-care (01) ==
LOC: M ED 19:17
DX: K52.9 Noninfective gastroenteritis and colitis, unspecified (principal); J44.9 Chronic obstructive pulmonary disease, unspecified; I25.10 Atherosclerotic heart disease of native coronary artery without angina pectoris; G40.909 Epilepsy, unspecified, not intractable, without status epilepticus; Z79.899 Other long term (current) drug therapy; Z88.1 Allergy status to other antibiotic agents; Z88.2 Allergy status to sulfonamides
CPT/HCPCS: 74177; 80047; 80076; 83690; 85025; 87040; 93041; 96361; 96374; 96375; 99284; J1885; J2270; J2405; Q9967

== ENCOUNTER → 2019-08-26 | Outpatient (REF) | payer MEDICARE, MEDICAID ==
[~2019-08-26] MED LIST changes: +ONDA4TAB6 PO
[2019-08-26 19:15] LABS: BASO # 0.1 10^3/uL (0.0-0.2); BASO % 0.5 % (0.0-1.0); EOS # 0.3 10^3/uL (0.0-0.5); EOS % 2.4 % (0.0-3.0); HEMOGLOBIN 14.9 g/dl (12.0-15.5); LYMPH # 3.6 10^3/uL (1.5-5.0); LYMPH % 30.1 % (24.0-44.0); MEAN CORPUSCULAR HGB CONC 32.4 g/dl (32.0-36.5); MEAN CORPUSCULAR VOLUME 86.3 fl (80.0-96.0); MONO # 0.7 10^3/uL (0.0-0.8); MONO % 6.3 % (0.0-5.0); NEUTROPHILS # 7.1 10^3/uL (1.5-8.5); NEUTROPHILS % 60.2 % (36.0-66.0); PLATELET COUNT, AUTOMATED 340 10^3/uL (150-450); RED BLOOD COUNT 5.33 10^6/uL (4.00-5.40); WHITE BLOOD COUNT 11.8 10^3/uL (4.0-10.0)
[2019-08-26 19:41] LABS: ALBUMIN 4.2 GM/DL (3.2-5.2); BILIRUBIN,TOTAL 0.4 MG/DL (0.2-1.0); CALCIUM LEVEL 9.4 MG/DL (8.5-10.1); CREATININE FOR GFR 1.09 MG/DL (0.55-1.30); GLOMERULAR FILTRATION RATE 55.5 (>51); POTASSIUM SERUM 4.1 MEQ/L (3.5-5.1); TOTAL PROTEIN 8.4 GM/DL (6.4-8.2)
== END ==
LOC: M LAB REF 19:00
PROVIDERS: ATTEND Nurse Practitioner Family
DX: R25.2 Cramp and spasm (principal); R10.9 Unspecified abdominal pain; R19.7 Diarrhea, unspecified

== ENCOUNTER → 2019-08-27 | Outpatient (CLI) | payer MEDICARE, MEDICAID ==
--- NOTE | 2019-08-27 12:20 | REP ---
CHEST, TWO VIEWS: COMPARISON: 03/10/2012 There is minimal biapical pleural thickening. No acute infiltrate is seen. Heart is normal in size. Mediastinal silhouette is unremarkable. Old left 8th rib fracture is noted. IMPRESSION: No evidence of acute pulmonary disease. Electronically Signed by Ciaran Hughes MD 08/27/2019 03:52 P
== END ==
LOC: M RAD 11:22
PROVIDERS: ATTEND Nurse Practitioner Family
DX: R05 Cough (principal)

== ENCOUNTER → 2019-11-03 | Outpatient (REF) | payer MEDICARE, MEDICAID | LOC: M PLALAB 09:14 | PROVIDERS: ATTEND Physician Assistant | DX: R94.2 Abnormal results of pulmonary function studies (principal) ==

== ENCOUNTER → 2019-11-08 | Outpatient (REF) | payer MEDICARE, MEDICAID ==
[2019-12-24 06:44] LABS: FATS NEUTRAL SEE SEPARATE REPORT; FATS TOTAL SEE SEPARATE REPORT; H PYLORI STOOL ANTIGEN SEE SEPARATE REPORT; PANCREATIC ELASTASE STOOL SEE SEPARATE REPORT
[2019-12-24 06:45] LABS: CALPROTECTIN STOOL SEE SEPARATE REPORT
== END ==
LOC: M LAB REF 15:53
PROVIDERS: ATTEND Internal Medicine Gastroenterology
DX: R19.7 Diarrhea, unspecified (principal)

== ENCOUNTER → 2019-11-08 | Outpatient (CLI) | payer MEDICARE, MEDICAID ==
[2019-12-14 21:49] LABS: ALBUMIN 4.1 GM/DL (3.2-5.2); ALT/SGPT 44 U/L (12-78); BILIRUBIN,DIRECT < 0.1 MG/DL (0.0-0.2); BILIRUBIN,TOTAL 0.3 MG/DL (0.2-1.0); FOLATE 12.7 NG/ML; TOTAL PROTEIN 8.3 GM/DL (6.4-8.2); VITAMIN B12 LEVEL 544 PG/ML
[2019-12-16 07:58] LABS: IGASUB2 See Separate Report; IGASUB3 See Separate Report; IgA SERUM (part of Subclasses) See Separate Report; TISSUE TRANSGLUTAMINASE IgA SEE SEPARATE REPORT UNITS
== END ==
LOC: M LAB 09:55
PROVIDERS: ATTEND Internal Medicine Gastroenterology
DX: R19.7 Diarrhea, unspecified (principal)

== ENCOUNTER → 2019-11-16 | Outpatient (REF) | payer MEDICARE, MEDICAID ==
[2019-12-19 11:03] LABS: BASO # 0.1 10^3/uL (0.0-0.2); BASO % 0.5 % (0.0-1.0); EOS # 0.3 10^3/uL (0.0-0.5); HEMOGLOBIN 14.8 g/dl (12.0-15.5); LYMPH # 2.8 10^3/uL (1.5-5.0); LYMPH % 30.3 % (24.0-44.0); MEAN CORPUSCULAR HGB CONC 32.2 g/dl (32.0-36.5); MONO # 0.6 10^3/uL (0.0-0.8); MONO % 6.6 % (0.0-5.0); NEUTROPHILS # 5.5 10^3/uL (1.5-8.5); NEUTROPHILS % 59.3 % (36.0-66.0); PLATELET COUNT, AUTOMATED 300 10^3/uL (150-450); RED BLOOD COUNT 5.11 10^6/uL (4.00-5.40); WHITE BLOOD COUNT 9.3 10^3/uL (4.0-10.0)
[2019-12-31 21:10] LABS: BILIRUBIN,TOTAL 0.3 MG/DL (0.2-1.0); CALCIUM LEVEL 9.4 MG/DL (8.5-10.1); CHOLESTEROL RISK RATIO 5.179 (<5); CREATININE FOR GFR 1.04 MG/DL (0.55-1.30); GLOMERULAR FILTRATION RATE 58.4 (>51); HEMOGLOBIN A1c 5.6 %; POTASSIUM SERUM 4.5 MEQ/L (3.5-5.1); TOTAL PROTEIN 7.9 GM/DL (6.4-8.2)
== END ==
LOC: M LAB REF 07:12
PROVIDERS: ATTEND Nurse Practitioner Family
DX: E78.5 Hyperlipidemia, unspecified (principal); R73.03 Prediabetes; Z13.9 Encounter for screening, unspecified; I10 Essential (primary) hypertension

== ENCOUNTER → 2019-12-09 | Outpatient (CLI) | payer MEDICARE, MEDICAID ==
[~2019-12-09] MED LIST changes: +METHACHOLINE KIT (J7674) INH ONE
--- NOTE | 2019-12-16 11:42 | PFTRPT ---
Height: 60.50 Inches Weight: 156.00 Lbs BSA: 1.69 Diagnosis: R94.2 DATE: 12/09/2019 ORDERED BY: Cale Lopez M.D. QUALITY: Study of excellent technical quality. PROCEDURE: Under protocol, methacholine was administered. At a dose of 0.25 mg or 1.375 CDUs, a 28% decline of the FEV1 was noted. PC of 0.08 is significant. Flow rates did return to baseline post-bronchodilator administration. IMPRESSION: Positive methacholine challenge study. MTDD
== END ==
LOC: M CARPUL 08:16
PROVIDERS: ATTEND Physician Assistant
DX: R94.2 Abnormal results of pulmonary function studies (principal)
CPT/HCPCS: 94070; 95070; J7674

== ENCOUNTER → 2020-02-15 | Outpatient (REF) | payer MEDICARE, MEDICAID ==
[~2020-02-15] MED LIST changes: -METHACHOLINE KIT (J7674) INH ONE
[2020-02-15 13:14] LABS: BASO % 0.5 % (0.0-1.0); EOS # 0.3 10^3/uL (0.0-0.5); EOS % 3.5 % (0.0-3.0); HEMATOCRIT 44.8 % (36.0-47.0); LYMPH # 2.4 10^3/uL (1.5-5.0); MEAN CORPUSCULAR HEMOGLOBIN 27.6 pg (27.0-33.0); MEAN CORPUSCULAR HGB CONC 31.3 g/dl (32.0-36.5); MEAN CORPUSCULAR VOLUME 88.4 fl (80.0-96.0); MONO # 0.6 10^3/uL (0.0-0.8); MONO % 7.5 % (0.0-5.0); NEUTROPHILS # 4.9 10^3/uL (1.5-8.5); NEUTROPHILS % 59.3 % (36.0-66.0); PLATELET COUNT, AUTOMATED 267 10^3/uL (150-450); RED BLOOD COUNT 5.07 10^6/uL (4.00-5.40); WHITE BLOOD COUNT 8.3 10^3/uL (4.0-10.0)
[2020-02-15 13:47] LABS: BILIRUBIN,TOTAL 0.3 MG/DL (0.2-1.0); CHOLESTEROL RISK RATIO 4.075 (<5); CREATININE FOR GFR 1.12 MG/DL (0.55-1.30); GLOMERULAR FILTRATION RATE 53.6 (>51); POTASSIUM SERUM 4.5 MEQ/L (3.5-5.1); TOTAL PROTEIN 7.5 GM/DL (6.4-8.2)
[2020-02-15 13:54] LABS: HEMOGLOBIN A1c 5.6 %
== END ==
LOC: M LAB REF 12:29
PROVIDERS: ATTEND Nurse Practitioner Family
DX: R10.9 Unspecified abdominal pain (principal); F41.1 Generalized anxiety disorder; E78.5 Hyperlipidemia, unspecified; R73.03 Prediabetes; I10 Essential (primary) hypertension

== ENCOUNTER → 2020-05-23 | Outpatient (REF) | payer MEDICARE, MEDICAID ==
[~2020-05-23] MED LIST changes: +GABA-282 PO; -GABA-843 PO; +LISI10TA22 PO; -LISI10TA4 PO
[2020-05-23 17:02] LABS: BASO # 0.1 10^3/uL (0.0-0.2); BASO % 0.6 % (0.0-1.0); EOS # 0.3 10^3/uL (0.0-0.5); EOS % 3.2 % (0.0-3.0); HEMATOCRIT 47.5 % (36.0-47.0); HEMOGLOBIN 14.8 g/dl (12.0-15.5); LYMPH % 38.8 % (24.0-44.0); MEAN CORPUSCULAR HEMOGLOBIN 28.1 pg (27.0-33.0); MEAN CORPUSCULAR HGB CONC 31.2 g/dl (32.0-36.5); MEAN CORPUSCULAR VOLUME 90.3 fl (80.0-96.0); MONO # 0.5 10^3/uL (0.0-0.8); MONO % 6.6 % (2.0-8.0); NEUTROPHILS # 3.9 10^3/uL (1.5-8.5); NEUTROPHILS % 50.4 % (36.0-66.0); PLATELET COUNT, AUTOMATED 316 10^3/uL (150-450); RED BLOOD COUNT 5.26 10^6/uL (4.00-5.40); WHITE BLOOD COUNT 7.7 10^3/uL (4.0-10.0)
[2020-05-23 17:08] LABS: ALBUMIN 4.2 GM/DL (3.2-5.2); BILIRUBIN,TOTAL 0.3 MG/DL (0.2-1.0); CHOLESTEROL RISK RATIO 4.804 (<5); CREATININE FOR GFR 1.15 MG/DL (0.55-1.30); FREE T4 0.92 NG/DL (0.76-1.46); POTASSIUM SERUM 5.2 MEQ/L (3.5-5.1); THYROID STIMULATING HORMONE 3.68 uIU/ML (0.358-3.740); TOTAL PROTEIN 7.7 GM/DL (6.4-8.2)
[2020-05-23 17:09] LABS: TOTAL 25(OH) VITAMIN D 63.6 NG/ML (30.0-100.0)
[2020-05-23 17:26] LABS: HEMOGLOBIN A1c 5.6 %
== END ==
LOC: M LAB REF 16:22
PROVIDERS: ATTEND Nurse Practitioner Family
DX: E78.2 Mixed hyperlipidemia (principal); E55.9 Vitamin D deficiency, unspecified; I10 Essential (primary) hypertension

== ENCOUNTER → 2020-09-14 | Outpatient (REF) | payer MEDICARE, MEDICAID ==
[~2020-09-14] MED LIST changes: +GABA-283 PO; -GABA-845 PO
== END ==
LOC: M SFHCWAGY 13:45
PROVIDERS: ATTEND Nurse Practitioner Women's Health
DX: Z12.4 Encounter for screening for malignant neoplasm of cervix (principal)

== ENCOUNTER → 2020-09-14 | Outpatient (CLI) | payer MEDICARE, MEDICAID ==
--- NOTE | 2020-09-14 12:46 | REPMRS ---
Patient History The patient states she had a clinical breast exam in September 2020. No known family history of cancer. Took hormonal contraceptives for 2 years. 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 Best images possible, unable to get DBT CC views due to pts condition, unable to turn her head to get it out of the way. 2D CC views obtained. Moderna vaccine 07/03/20 left arm, 08/01/20 left arm. Patient states no breast complaints today. Patient has signed MRS History Sheet. Digital Woman Screen Mammo: September 14, 2020 - Exam #: [id number] Bilateral CC and MLO view(s) were taken. Technologist: RT Pratik Prior study comparison: January 20, 2019, bilateral digital mammo screening bilat, performed at [facility]. March 10, 2013, bilateral digital mammo screening bilat, performed at [facility]. FINDINGS: There are scattered fibroglandular densities. Screening. Digital screening (2D) mammography was performed bilaterally in the CC and MLO projections. Additionally, breast tomosynthesis (3D mammography) was performed bilaterally in the MLO projections.The technologist was unable to obtain DBT in the CC projection. Todays exam was compared to the prior exam/exams.There are no prior DBT images for comparison. By history, the patient has no complaints of a palpable breast abnormality or other significant breast complaints. The breasts are unchanged in size and shape. There are no ambrose-soft tissue densities or spiculated masses. There is no internal architectural distortion. There are no suspicious ambrose-calcific clusters. Skin thickening or nipple retraction is not present. IMPRESSION: BI-RADS Category 2- Benign Findings. There is no evidence of malignant alteration of the breasts. Followup examination recommended in one year. The Volpara volumetric breast density category is B, there are scattered areas of fibroglandular density. This mammogram was read with the assistance of [employer]an FDA approved computer aided detection system for mammography. The lifetime Tyrer-Cuzick score is 7.3 % Negative x-ray reports should not delay surgical consultation if a dominant or clinically suspicious mass is present. Not all breast cancers can be identified by mammography. Therefore, we recommend that you continue to perform regular breast self-examination and physical examination and then promptly contact your physician of any concerns or changes. Adenosis and dense breasts may obscure an underlying neoplasm. Assessment: BI-RADS/ACR category 2 mammogram. Benign Findings. Recommendation Routine screening mammogram of both breasts in 1 year. Electronically Signed By: Indra Kaiser DO 09/14/20 [id number]
== END ==
LOC: M WHC 09:50
PROVIDERS: ATTEND Nurse Practitioner Women's Health
DX: Z01.419 Encounter for gynecological examination (general) (routine) without abnormal findings (principal); Z12.31 Encounter for screening mammogram for malignant neoplasm of breast; Z92.0 Personal history of contraception
CPT/HCPCS: 77063; 77067; 87624; G0101; G0123

== ENCOUNTER 2021-03-26 10:19 | Emergency (ER) | payer MEDICARE, MEDICAID ==
[~2021-03-26] VITALS: Ht 154.9 cm; Wt 67.3 kg
[2021-03-26 12:21] LABS: BASO % 0.5 % (0.0-1.0); EOS # 0.2 10^3/uL (0.0-0.5); EOS % 1.8 % (0.0-3.0); HEMATOCRIT 49.1 % (36.0-47.0); HEMOGLOBIN 15.9 g/dl (12.0-15.5); LYMPH # 2.7 10^3/uL (1.5-5.0); LYMPH % 33.1 % (24.0-44.0); MEAN CORPUSCULAR HEMOGLOBIN 28.8 pg (27.0-33.0); MEAN CORPUSCULAR HGB CONC 32.4 g/dl (32.0-36.5); MEAN CORPUSCULAR VOLUME 88.9 fl (80.0-96.0); MONO # 0.5 10^3/uL (0.0-0.8); MONO % 6.6 % (2.0-8.0); NEUTROPHILS # 4.7 10^3/uL (1.5-8.5); NEUTROPHILS % 57.8 % (36.0-66.0); PLATELET COUNT, AUTOMATED 306 10^3/uL (150-450); RED BLOOD COUNT 5.52 10^6/uL (4.00-5.40); WHITE BLOOD COUNT 8.2 10^3/uL (4.0-10.0)
[2021-03-26 13:06] LABS: ALBUMIN 4.3 GM/DL (3.2-5.2); ALT/SGPT 34 U/L (12-78); BILIRUBIN,DIRECT < 0.1 MG/DL (0.0-0.2); BILIRUBIN,TOTAL 0.6 MG/DL (0.2-1.0); BLOOD UREA NITROGEN 18 MG/DL (7-18); CALCIUM LEVEL 9.9 MG/DL (8.5-10.1); CARBON DIOXIDE LEVEL 27 MEQ/L (21-32); CHLORIDE LEVEL 107 MEQ/L (98-107); CREATININE FOR GFR 0.84 MG/DL (0.55-1.30); GLOMERULAR FILTRATION RATE > 60.0 (>51); GLUCOSE, FASTING 92 MG/DL (70-100); LIPASE 153 U/L (73-393); POTASSIUM SERUM 4.8 MEQ/L (3.5-5.1); SODIUM LEVEL 139 MEQ/L (136-145); TOTAL PROTEIN 8.4 GM/DL (6.4-8.2)
--- NOTE | 2021-03-26 13:41 | REP ---
INDICATION: cough COMPARISON: 08/27/2019 TECHNIQUE: Portable AP view of the chest FINDINGS: The mediastinum and cardiac silhouette are stable and within normal limits for portable technique. The lung gomes are clear without acute consolidation, effusion, or pneumothorax. Skeletal structures are intact with evidence for old healed left rib fractures again noted. IMPRESSION: No acute cardiopulmonary process appreciated. <Electronically signed by Cale Oleary > 03/26/21 [id number]
[2021-03-26 14:46] VITALS: BP 161/79
[2021-03-26 14:56] LABS: RSV AMPLIFICATION NEGATIVE (NEGATIVE)
== END 2021-03-26 16:12 | disposition home or self-care (01) ==
LOC: M ED 10:19
DX: R19.7 Diarrhea, unspecified (principal); I10 Essential (primary) hypertension; E78.9 Disorder of lipoprotein metabolism, unspecified; G31.9 Degenerative disease of nervous system, unspecified; K21.9 Gastro-esophageal reflux disease without esophagitis; Z86.19 Personal history of other infectious and parasitic diseases; Z79.899 Other long term (current) drug therapy; Z88.1 Allergy status to other antibiotic agents; Z88.2 Allergy status to sulfonamides; Z88.8 Allergy status to other drugs, medicaments and biological substances; Z87.891 Personal history of nicotine dependence

== ENCOUNTER → 2021-03-27 | Outpatient (REF) | payer MEDICARE, MEDICAID | LOC: M LAB REF 12:21 | PROVIDERS: ATTEND Emergency Medicine | DX: R19.7 Diarrhea, unspecified (principal) ==

== ENCOUNTER → 2021-04-16 | Outpatient (REF) | payer MEDICARE, MEDICAID ==
[2021-04-16 11:56] LABS: CLOSTRIDIUM DIFFICILE PCR NEGATIVE (NEGATIVE)
== END ==
LOC: M LAB REF 10:36
PROVIDERS: ATTEND Internal Medicine Gastroenterology
DX: A04.72 Enterocolitis due to Clostridium difficile, not specified as recurrent (principal)

== ENCOUNTER 2021-06-18 12:42 | Outpatient (RCR) | payer MEDICARE, MEDICAID | END 2021-07-05 | LOC: M PT 12:42 | PROVIDERS: ATTEND Physician Assistant Medical | DX: Z01.818 Encounter for other preprocedural examination (principal); G32.81 Cerebellar ataxia in diseases classified elsewhere ==

== ENCOUNTER → 2021-08-13 | Outpatient (REF) | payer MEDICARE, MEDICAID | LOC: M LAB REF 09:32 | PROVIDERS: ATTEND Physician Assistant Medical | DX: R19.5 Other fecal abnormalities (principal) ==

== ENCOUNTER → 2022-02-12 | Outpatient (REF) | payer MEDICARE, MEDICAID ==
[~2022-02-12] MED LIST changes: +TRAM200T20 PO; -TRAM200T23 PO
[2022-02-12 14:43] LABS: CHOLESTEROL RISK RATIO 4.27 (<5); THYROID STIMULATING HORMONE 2.98 uIU/ML (0.358-3.740)
== END ==
LOC: M LAB REF 12:04
PROVIDERS: ATTEND Nurse Practitioner Family
DX: E78.5 Hyperlipidemia, unspecified (principal); R94.6 Abnormal results of thyroid function studies

== ENCOUNTER → 2022-03-07 | Outpatient (REF) | payer MEDICARE, OTHER, MEDICAID | LOC: M PLALAB 15:39 | PROVIDERS: ATTEND Nurse Practitioner Family | DX: Z12.4 Encounter for screening for malignant neoplasm of cervix (principal) | CPT/HCPCS: 87624; G0123 ==

== ENCOUNTER → 2022-03-07 | Outpatient (CLI) | payer MEDICARE, MEDICAID, OTHER | LOC: M WHC 14:42 | PROVIDERS: ATTEND Nurse Practitioner Family | DX: Z12.31 Encounter for screening mammogram for malignant neoplasm of breast (principal) | CPT/HCPCS: 77063; 77067; 87624; G0123 ==

== ENCOUNTER → 2022-05-22 | Outpatient (REF) | payer MEDICARE, MEDICAID ==
[2022-05-22 12:37] LABS: HEMOGLOBIN A1c 5.7 % (4.0-6.0)
[2022-05-22 13:21] LABS: ALBUMIN 3.9 G/DL (3.2-5.2); ALKALINE PHOSPHATASE 120 U/L (46-116); ALT/SGPT 55 U/L (7.0-40); AST/SGOT 42 U/L (<34); BILIRUBIN,TOTAL 0.6 MG/DL (0.3-1.2); BLOOD UREA NITROGEN 22 MG/DL (9-23); CALCIUM LEVEL 9.7 MG/DL (8.5-10.1); CARBON DIOXIDE LEVEL 29 MMOL/L (20-31); CHLORIDE LEVEL 101 MMOL/L (98-107); CHOLESTEROL LEVEL 187 MG/DL (<200); CHOLESTEROL RISK RATIO 4.54 (<5); CREATININE FOR GFR 0.93 MG/DL (0.55-1.30); GLOMERULAR FILTRATION RATE > 60.0 (>51); GLUCOSE, FASTING 95 MG/DL (60-100); HDL CHOLESTEROL 41.1 MG/DL (>40); NON-HDL-C 146 MG/DL; POTASSIUM SERUM 4.5 MMOL/L (3.5-5.1); SODIUM LEVEL 138 MMOL/L (136-145)
[2022-05-22 21:34] LABS: LDL CHOLESTEROL 100.7 MG/DL (<100); TOTAL PROTEIN 7.6 G/DL (5.7-8.2); TRIGLYCERIDES LEVEL 226 MG/DL (<150)
== END ==
LOC: M LAB REF 11:14
PROVIDERS: ATTEND Nurse Practitioner Family
DX: Z13.228 Encounter for screening for other metabolic disorders (principal); Z79.899 Other long term (current) drug therapy

== ENCOUNTER → 2022-06-27 | Outpatient (REF) | payer MEDICARE, MEDICAID ==
[2022-06-27 17:14] LABS: BASO % 0.4 % (0.0-1.0); EOS # 0.3 10^3/uL (0.0-0.5); EOS % 2.7 % (0.0-3.0); HEMATOCRIT 44.5 % (36.0-47.0); HEMOGLOBIN 14.4 g/dl (12.0-15.5); LYMPH # 2.6 10^3/uL (1.5-5.0); LYMPH % 27.8 % (24.0-44.0); MEAN CORPUSCULAR HEMOGLOBIN 29.2 pg (27.0-33.0); MEAN CORPUSCULAR HGB CONC 32.4 g/dl (32.0-36.5); MEAN CORPUSCULAR VOLUME 90.3 fl (80.0-96.0); MONO # 0.6 10^3/uL (0.0-0.8); MONO % 5.9 % (2.0-8.0); NEUTROPHILS # 5.9 10^3/uL (1.5-8.5); NEUTROPHILS % 62.7 % (36.0-66.0); PLATELET COUNT, AUTOMATED 300 10^3/uL (150-450); RED BLOOD COUNT 4.93 10^6/uL (4.00-5.40); WHITE BLOOD COUNT 9.4 10^3/uL (4.0-10.0)
[2022-06-27 18:05] LABS: ALBUMIN 4.1 G/DL (3.2-5.2); ALKALINE PHOSPHATASE 131 U/L (46-116); ALT/SGPT 73 U/L (7.0-40); AST/SGOT 50 U/L (<34); BILIRUBIN,TOTAL 0.6 MG/DL (0.3-1.2); BLOOD UREA NITROGEN 29 MG/DL (9-23); CARBON DIOXIDE LEVEL 28 MMOL/L (20-31); CHLORIDE LEVEL 102 MMOL/L (98-107); CREATININE FOR GFR 0.89 MG/DL (0.55-1.30); GLOMERULAR FILTRATION RATE > 60.0 (>51); GLUCOSE, FASTING 91 MG/DL (60-100); MAGNESIUM LEVEL 2.1 MG/DL (1.8-2.4); POTASSIUM SERUM 4.3 MMOL/L (3.5-5.1); SODIUM LEVEL 139 MMOL/L (136-145); TOTAL PROTEIN 7.5 G/DL (5.7-8.2)
== END ==
LOC: M LAB REF 16:20
PROVIDERS: ATTEND Nurse Practitioner Family
DX: R42 Dizziness and giddiness (principal)

== ENCOUNTER 2022-08-26 18:44 | Inpatient (IN) | payer MEDICARE, MEDICAID ==
[~2022-08-26] VITALS: Ht 165.1 cm; Wt 68.2 kg
[2022-08-26] MEDS ORDERED: NS 500 ML IV ONE (19:05)
[2022-08-26] MEDS ORDERED: ONDANSETRON 4MG 2ML VIAL IV ONE (19:05)
[2022-08-26] MEDS: MORPHINE 4 MG/ML 1ML VIAL IV PRN ×2 (19:33→20:47)
[2022-08-26 19:46] LABS: BASO % 0.3 % (0.0-1.0); EOS # 0.1 10^3/uL (0.0-0.5); EOS % 0.7 % (0.0-3.0); HEMATOCRIT 43.8 % (36.0-47.0); HEMOGLOBIN 14.3 g/dl (12.0-15.5); LYMPH # 2.5 10^3/uL (1.5-5.0); LYMPH % 20.4 % (24.0-44.0); MEAN CORPUSCULAR HEMOGLOBIN 29.1 pg (27.0-33.0); MEAN CORPUSCULAR HGB CONC 32.6 g/dl (32.0-36.5); MEAN CORPUSCULAR VOLUME 89.2 fl (80.0-96.0); MONO # 0.8 10^3/uL (0.0-0.8); MONO % 6.1 % (2.0-8.0); PLATELET COUNT, AUTOMATED 287 10^3/uL (150-450); RED BLOOD COUNT 4.91 10^6/uL (4.00-5.40); WHITE BLOOD COUNT 12.5 10^3/uL (4.0-10.0)
[2022-08-26 20:02] LABS: ETHYL ALCOHOL (ETHANOL) < 0.003 % (0.000-0.010); INR 0.81; LIPASE 44 U/L (12-53); PROTHROMBIN TIME 11.4 SECONDS (12.5-14.5)
[2022-08-26 20:03] LABS: AMYLASE 57 U/L (30-118); PARTIAL THROMBOPLASTIN TIME 21.7 SECONDS (24.8-34.2)
[2022-08-26 20:04] LABS: ALKALINE PHOSPHATASE 130 U/L (46-116); ALT/SGPT 70 U/L (7.0-40); AST/SGOT 48 U/L (<34); BILIRUBIN,DIRECT 0.2 MG/DL (<0.4); BILIRUBIN,TOTAL 0.6 MG/DL (0.3-1.2); BLOOD UREA NITROGEN 26 MG/DL (9-23); CALCIUM LEVEL 9.7 MG/DL (8.5-10.1); CARBON DIOXIDE LEVEL 26 MMOL/L (20-31); CHLORIDE LEVEL 101 MMOL/L (98-107); CREATININE FOR GFR 0.95 MG/DL (0.55-1.30); GLOMERULAR FILTRATION RATE > 60.0 (>51); GLUCOSE, FASTING 121 MG/DL (60-100); POTASSIUM SERUM 4.7 MMOL/L (3.5-5.1); SODIUM LEVEL 138 MMOL/L (136-145); TOTAL PROTEIN 7.6 G/DL (5.7-8.2)
[2022-08-26] MEDS ORDERED: ISOVUE-370 76% 100ML VIAL As Ordered ONE (20:06)
[2022-08-26 20:10] LABS: RSV AMPLIFICATION NEGATIVE (NEGATIVE)
[2022-08-26] MEDS ORDERED: KETOROLAC 30 MG/ML 1ML VIAL IV ONE (22:45)
[2022-08-26] MEDS ORDERED: CYAN100050 PO (23:31)
[2022-08-26] MEDS ORDERED: VITA500054 PO (23:31)
[2022-08-26] MEDS ORDERED: LIDO5OIN19 EXT (23:31)
[2022-08-26] MEDS ORDERED: ARNU1INH3 INH (23:31)
[2022-08-26] MEDS ORDERED: MAGN400T35 PO (23:31)
[2022-08-26] MEDS ORDERED: ROPI2TAB3 PO (23:31)
[2022-08-26] MEDS ORDERED: ALBU8.5H INH (23:31)
[2022-08-26] MEDS ORDERED: CLON1TAB8 PO (23:31)
[2022-08-26] MEDS ORDERED: METO1TAB32 PO (23:31)
[2022-08-26] MEDS ORDERED: ATOR40TA75 PO (23:31)
[2022-08-26] MEDS ORDERED: ESTE1TAB4 PO (23:31)
[2022-08-26] MEDS ORDERED: TIZA10TA PO (23:31)
[2022-08-26] MEDS ORDERED: AMLO2.5T3 PO (23:31)
[2022-08-26] MEDS ORDERED: VITMTA PO (23:31)
[2022-08-26] MEDS ORDERED: BACL10TA2 PO ×2 (23:31)
[2022-08-26] MEDS ORDERED: GABA-283 PO (23:31)
[2022-08-26] MEDS ORDERED: OMEP40CA5 PO (23:32)
[2022-08-26] MEDS ORDERED: HOME MED LIST COMPLETE! XX SCH (23:35)
[2022-08-27 00:57] LABS: HEMATOCRIT 43.4 % (36.0-47.0); HEMOGLOBIN 14.3 g/dl (12.0-15.5); MEAN CORPUSCULAR HEMOGLOBIN 29.1 pg (27.0-33.0); MEAN CORPUSCULAR HGB CONC 32.9 g/dl (32.0-36.5); MEAN CORPUSCULAR VOLUME 88.4 fl (80.0-96.0); PLATELET COUNT, AUTOMATED 285 10^3/uL (150-450); RED BLOOD COUNT 4.91 10^6/uL (4.00-5.40); WHITE BLOOD COUNT 11.8 10^3/uL (4.0-10.0)
[2022-08-27] MEDS ORDERED: ALBUTEROL 90 MCG/ACT 8GM HFA INHALER INH PRN (02:40)
[2022-08-27] MEDS ORDERED: IBUPROFEN 400MG TAB PO PRN (02:40)
[2022-08-27] MEDS ORDERED: ACETAMINOPHEN TAB 650MG DOSE (2X325MG) PO PRN (02:40)
[2022-08-27] MEDS ORDERED: clonazePAM 1 MG TAB PO PRN (02:40)
[2022-08-27] MEDS ORDERED: amLODIPine 5 MG TAB PO ONE (03:00)
[2022-08-27 03:43] VITALS: BP 165/89
[2022-08-27] MEDS: PERCOCET 5MG/325MG TAB PO PRN ×2 (03:46→08:54)
[2022-08-27 05:33] VITALS: BP 172/82
[2022-08-27 06:23] LABS: HEMATOCRIT 42.1 % (36.0-47.0); HEMOGLOBIN 13.9 g/dl (12.0-15.5); MEAN CORPUSCULAR HEMOGLOBIN 29.8 pg (27.0-33.0); MEAN CORPUSCULAR VOLUME 90.1 fl (80.0-96.0); PLATELET COUNT, AUTOMATED 274 10^3/uL (150-450); RED BLOOD COUNT 4.67 10^6/uL (4.00-5.40); WHITE BLOOD COUNT 10.9 10^3/uL (4.0-10.0)
[2022-08-27 06:56] LABS: CALCIUM LEVEL 9.7 MG/DL (8.5-10.1); CREATININE FOR GFR 1.02 MG/DL (0.55-1.30); GLOMERULAR FILTRATION RATE 59.3 (>51); POTASSIUM SERUM 4.4 MMOL/L (3.5-5.1)
[2022-08-27] MEDS: FLUTICASONE HFA 220 MCG 12 GM INHALER (FLOVENT) INH SCH ×2 (08:12→19:56)
[2022-08-27] MEDS: BACLOFEN 10 MG TAB PO SCH ×2 (08:51→21:11)
[2022-08-27] MEDS: DOCUSATE SODIUM 100MG CAPSULE PO SCH ×2 (08:52→21:11)
[2022-08-27] MEDS: MULTIVITAMINS/MINERALS THERAP 1 TAB PO SCH (08:52)
[2022-08-27] MEDS: GABAPENTIN 400MG CAP PO SCH ×3 (08:52→21:10)
[2022-08-27] MEDS: MAGNESIUM OXIDE 400MG TAB (MAG-OX) PO SCH (08:52)
[2022-08-27] MEDS: tiZANidine 4 MG TAB PO SCH ×2 (08:53→21:11)
[2022-08-27] MEDS: METOPROLOL SUCC *XL* 25MG TAB (TopROL *XL*) PO SCH (08:53)
[2022-08-27] MEDS: OMEPRAZOLE 20MG CAP PO SCH (08:54)
[2022-08-27] MEDS: LIDOCAINE 5% OINT 30GM TUBE EXT SCH ×2 (08:54→21:11)
[2022-08-27] MEDS ORDERED: ENOXAPARIN 40MG/0.4ML SYRINGE (J1650 PER 10MG) SC SCH (09:00)
[2022-08-27] MEDS ORDERED: oxyCODONE 5MG TAB PO ONE (11:50)
[2022-08-27] MEDS: DICLOFENAC EPOLAMINE 1.3% PATCH TOP SCH ×2 (12:48→21:11)
[2022-08-27] MEDS: LIDOCAINE 5% (LIDODERM) PATCH TD SCH (12:48)
[2022-08-27] MEDS: KETOROLAC 30 MG/ML 1ML VIAL IV PRN ×2 (12:48→18:51)
[2022-08-27 14:00] VITALS: BP 114/66
[2022-08-27] MEDS: ACETAMINOPHEN 500 MG TAB PO SCH (17:27)
[2022-08-27] MEDS: oxyCODONE 5MG TAB PO PRN (17:27)
[2022-08-27 20:59] VITALS: BP 148/72
[2022-08-27] MEDS: rOPINIRole 1MG TAB PO SCH (21:11)
[2022-08-27] MEDS: ATORVASTATIN 20 MG TAB PO SCH (21:11)
[2022-08-28] MEDS: ACETAMINOPHEN 500 MG TAB PO SCH ×5 (00:29→23:27)
[2022-08-28] MEDS: oxyCODONE 5MG TAB PO PRN ×2 (04:28→12:56)
[2022-08-28 05:37] VITALS: BP 121/71
[2022-08-28 05:47] LABS: HEMATOCRIT 40.5 % (36.0-47.0); HEMOGLOBIN 13.1 g/dl (12.0-15.5); MEAN CORPUSCULAR HEMOGLOBIN 29.6 pg (27.0-33.0); MEAN CORPUSCULAR HGB CONC 32.3 g/dl (32.0-36.5); MEAN CORPUSCULAR VOLUME 91.4 fl (80.0-96.0); PLATELET COUNT, AUTOMATED 247 10^3/uL (150-450); RED BLOOD COUNT 4.43 10^6/uL (4.00-5.40); WHITE BLOOD COUNT 9.9 10^3/uL (4.0-10.0)
[2022-08-28 06:07] LABS: CALCIUM LEVEL 9.1 MG/DL (8.5-10.1); CREATININE FOR GFR 1.13 MG/DL (0.55-1.30); GLOMERULAR FILTRATION RATE 52.5 (>51); POTASSIUM SERUM 4.1 MMOL/L (3.5-5.1)
[2022-08-28] MEDS: FLUTICASONE HFA 220 MCG 12 GM INHALER (FLOVENT) INH SCH ×2 (07:38→19:31)
[2022-08-28] MEDS: MULTIVITAMINS/MINERALS THERAP 1 TAB PO SCH (08:26)
[2022-08-28] MEDS: BACLOFEN 10 MG TAB PO SCH ×2 (08:27→22:19)
[2022-08-28] MEDS: OMEPRAZOLE 20MG CAP PO SCH (08:27)
[2022-08-28] MEDS: GABAPENTIN 400MG CAP PO SCH ×3 (08:27→22:20)
[2022-08-28] MEDS: MAGNESIUM OXIDE 400MG TAB (MAG-OX) PO SCH (08:27)
[2022-08-28] MEDS: tiZANidine 4 MG TAB PO SCH ×2 (08:27→22:20)
[2022-08-28] MEDS: DICLOFENAC EPOLAMINE 1.3% PATCH TOP SCH ×2 (08:28→22:19)
[2022-08-28] MEDS: LIDOCAINE 5% (LIDODERM) PATCH TD SCH (08:28)
[2022-08-28] MEDS: METOPROLOL SUCC *XL* 25MG TAB (TopROL *XL*) PO SCH (08:28)
[2022-08-28] MEDS: LIDOCAINE 5% OINT 30GM TUBE EXT SCH ×2 (08:28→22:20)
[2022-08-28] MEDS: MORPHINE 4 MG/ML 1ML VIAL IV PRN ×3 (08:29→22:22)
[2022-08-28] MEDS: DOCUSATE SODIUM 100MG CAPSULE PO SCH ×2 (08:30→22:20)
[2022-08-28] MEDS: KETOROLAC 30 MG/ML 1ML VIAL IV PRN ×2 (08:50→16:19)
[2022-08-28 10:02] LABS: ABG BASE EXCESS 1.9 (-2.0-2.0); ABG HCO3 27.2 MMOL/L (22.0-26.0); ABG O2 SATURATION 93.6 % (95.0-99.0); ABG PARTIAL PRESSURE CO2 45.2 mmHg (35.0-45.0); ABG PARTIAL PRESSURE O2 65.5 mmHg (75.0-100.0); ABG STANDARD HCO3 26.1 MMOL/L. (22.0-26.0); ABG TOTAL CO2 28.6 MMOL/L (22.0-29.0); ABG pH (ARTERIAL) 7.398 UNITS (7.350-7.450)
[2022-08-28 15:00] VITALS: BP 162/88
[2022-08-28] MEDS: RIVAROXABAN 10MG TAB (XARELTO) PO SCH (16:41)
[2022-08-28 20:07] VITALS: BP 152/74
[2022-08-28] MEDS: rOPINIRole 1MG TAB PO SCH (22:19)
[2022-08-28] MEDS: ATORVASTATIN 20 MG TAB PO SCH (22:20)
[2022-08-29] MEDS: oxyCODONE 5MG TAB PO PRN ×3 (03:17→18:53)
[2022-08-29] MEDS: ACETAMINOPHEN 500 MG TAB PO SCH ×3 (05:56→18:53)
[2022-08-29] MEDS: MORPHINE 4 MG/ML 1ML VIAL IV PRN (05:56)
[2022-08-29 06:00] VITALS: BP 138/62
[2022-08-29] MEDS: FLUTICASONE HFA 220 MCG 12 GM INHALER (FLOVENT) INH SCH ×2 (07:46→19:22)
[2022-08-29] MEDS: tiZANidine 4 MG TAB PO SCH ×2 (10:21→21:08)
[2022-08-29] MEDS: MULTIVITAMINS/MINERALS THERAP 1 TAB PO SCH (10:21)
[2022-08-29] MEDS: BACLOFEN 10 MG TAB PO SCH ×2 (10:21→21:07)
[2022-08-29] MEDS: METOPROLOL SUCC *XL* 25MG TAB (TopROL *XL*) PO SCH (10:21)
[2022-08-29] MEDS: MAGNESIUM OXIDE 400MG TAB (MAG-OX) PO SCH (10:21)
[2022-08-29] MEDS: GABAPENTIN 400MG CAP PO SCH ×3 (10:22→21:07)
[2022-08-29] MEDS: OMEPRAZOLE 20MG CAP PO SCH (10:22)
[2022-08-29] MEDS: LIDOCAINE 5% OINT 30GM TUBE EXT SCH ×2 (10:23→21:09)
[2022-08-29] MEDS: DOCUSATE SODIUM 100MG CAPSULE PO SCH ×2 (10:23→21:10)
[2022-08-29] MEDS: LIDOCAINE 5% (LIDODERM) PATCH TD SCH (10:24)
[2022-08-29] MEDS: DICLOFENAC EPOLAMINE 1.3% PATCH TOP SCH ×2 (10:24→21:07)
[2022-08-29] MEDS: KETOROLAC 30 MG/ML 1ML VIAL IV PRN ×2 (10:24→21:03)
[2022-08-29] MEDS ORDERED: POLYVINYL ALCOHOL OPHTH SOLN 15ML (LIQUITEARS) OU PRN (11:35)
[2022-08-29] MEDS: SODIUM CHLORIDE 0.9% NASAL GEL 15GM (AYR) PRN ×2 (12:17→18:45)
[2022-08-29 14:00] VITALS: BP 140/68
[2022-08-29] MEDS: RIVAROXABAN 10MG TAB (XARELTO) PO SCH (18:56)
[2022-08-29 20:00] VITALS: BP 159/92
[2022-08-29] MEDS: PHENAZOPYRIDINE 100 MG TAB PO SCH (21:07)
[2022-08-29] MEDS: ATORVASTATIN 20 MG TAB PO SCH (21:08)
[2022-08-29] MEDS: rOPINIRole 1MG TAB PO SCH (21:08)
[2022-08-30] MEDS: ACETAMINOPHEN 500 MG TAB PO SCH ×5 (00:36→23:28)
[2022-08-30 06:00] VITALS: BP 183/90
[2022-08-30] MEDS: FLUTICASONE HFA 220 MCG 12 GM INHALER (FLOVENT) INH SCH ×2 (07:54→19:14)
[2022-08-30] MEDS: DOCUSATE SODIUM 100MG CAPSULE PO SCH ×2 (10:21→20:13)
[2022-08-30] MEDS: METOPROLOL SUCC *XL* 25MG TAB (TopROL *XL*) PO SCH (10:24)
[2022-08-30] MEDS: PHENAZOPYRIDINE 100 MG TAB PO SCH ×3 (10:24→20:13)
[2022-08-30] MEDS: BACLOFEN 10 MG TAB PO SCH ×2 (10:24→20:14)
[2022-08-30] MEDS: MULTIVITAMINS/MINERALS THERAP 1 TAB PO SCH (10:24)
[2022-08-30] MEDS: LIDOCAINE 5% (LIDODERM) PATCH TD SCH (10:25)
[2022-08-30] MEDS: OMEPRAZOLE 20MG CAP PO SCH (10:25)
[2022-08-30] MEDS: tiZANidine 4 MG TAB PO SCH ×2 (10:25→20:13)
[2022-08-30] MEDS: DICLOFENAC EPOLAMINE 1.3% PATCH TOP SCH ×2 (10:25→20:14)
[2022-08-30] MEDS: MAGNESIUM OXIDE 400MG TAB (MAG-OX) PO SCH (10:25)
[2022-08-30] MEDS: GABAPENTIN 400MG CAP PO SCH ×3 (10:25→20:13)
[2022-08-30] MEDS: LIDOCAINE 5% OINT 30GM TUBE EXT SCH ×2 (10:26→20:14)
[2022-08-30] MEDS: KETOROLAC 30 MG/ML 1ML VIAL IV PRN (10:26)
[2022-08-30 14:00] VITALS: BP 154/80
[2022-08-30] MEDS: RIVAROXABAN 10MG TAB (XARELTO) PO SCH (17:21)
[2022-08-30] MEDS ORDERED: ONDANSETRON 4MG TAB PO ONE (17:25)
[2022-08-30] MEDS: ATORVASTATIN 20 MG TAB PO SCH (20:13)
[2022-08-30] MEDS: rOPINIRole 1MG TAB PO SCH (20:13)
[2022-08-30 21:27] VITALS: BP 143/81
[2022-08-31] MEDS: KETOROLAC 30 MG/ML 1ML VIAL IV PRN (02:10)
[2022-08-31 05:28] VITALS: BP 160/89
[2022-08-31] MEDS: ACETAMINOPHEN 500 MG TAB PO SCH ×3 (05:32→17:15)
[2022-08-31] MEDS: FLUTICASONE HFA 220 MCG 12 GM INHALER (FLOVENT) INH SCH ×2 (07:12→19:31)
[2022-08-31] MEDS: BACLOFEN 10 MG TAB PO SCH ×2 (08:59→20:13)
[2022-08-31] MEDS: PHENAZOPYRIDINE 100 MG TAB PO SCH ×2 (08:59→17:14)
[2022-08-31] MEDS: MULTIVITAMINS/MINERALS THERAP 1 TAB PO SCH (08:59)
[2022-08-31] MEDS: OMEPRAZOLE 20MG CAP PO SCH (08:59)
[2022-08-31] MEDS: METOPROLOL SUCC *XL* 25MG TAB (TopROL *XL*) PO SCH (09:00)
[2022-08-31] MEDS: MAGNESIUM OXIDE 400MG TAB (MAG-OX) PO SCH (09:00)
[2022-08-31] MEDS: DOCUSATE SODIUM 100MG CAPSULE PO SCH ×2 (09:00→20:13)
[2022-08-31] MEDS: GABAPENTIN 400MG CAP PO SCH ×3 (09:00→20:12)
[2022-08-31] MEDS: LIDOCAINE 5% OINT 30GM TUBE EXT SCH ×2 (09:01→20:13)
[2022-08-31] MEDS: LIDOCAINE 5% (LIDODERM) PATCH TD SCH (09:01)
[2022-08-31] MEDS: tiZANidine 4 MG TAB PO SCH ×2 (09:01→20:15)
[2022-08-31] MEDS: DICLOFENAC EPOLAMINE 1.3% PATCH TOP SCH ×2 (09:02→20:14)
[2022-08-31 09:11] VITALS: BP 171/100
[2022-08-31] MEDS ORDERED: amLODIPine 5 MG TAB PO ONE (12:30)
[2022-08-31 13:24] VITALS: BP 166/89
[2022-08-31 14:00] VITALS: BP 140/80
[2022-08-31 14:40] VITALS: O2SAT 94
[2022-08-31] MEDS: RIVAROXABAN 10MG TAB (XARELTO) PO SCH (17:15)
[2022-08-31 19:51] VITALS: BP 123/88
[2022-08-31] MEDS: rOPINIRole 1MG TAB PO SCH (20:13)
[2022-08-31] MEDS: ATORVASTATIN 20 MG TAB PO SCH (20:13)
[2022-09-01] MEDS: ACETAMINOPHEN 500 MG TAB PO SCH ×5 (05:15→23:39)
[2022-09-01 05:37] VITALS: BP 151/81
[2022-09-01] MEDS: FLUTICASONE HFA 220 MCG 12 GM INHALER (FLOVENT) INH SCH ×2 (07:24→19:46)
[2022-09-01] MEDS: OMEPRAZOLE 20MG CAP PO SCH (10:28)
[2022-09-01] MEDS: GABAPENTIN 400MG CAP PO SCH ×3 (10:28→21:44)
[2022-09-01] MEDS: METOPROLOL SUCC *XL* 25MG TAB (TopROL *XL*) PO SCH (10:29)
[2022-09-01] MEDS: BACLOFEN 10 MG TAB PO SCH ×2 (10:29→21:45)
[2022-09-01] MEDS: DOCUSATE SODIUM 100MG CAPSULE PO SCH ×2 (10:29→21:45)
[2022-09-01] MEDS: MULTIVITAMINS/MINERALS THERAP 1 TAB PO SCH (10:30)
[2022-09-01] MEDS: tiZANidine 4 MG TAB PO SCH ×2 (10:30→21:45)
[2022-09-01] MEDS: MAGNESIUM OXIDE 400MG TAB (MAG-OX) PO SCH (10:30)
[2022-09-01] MEDS: amLODIPine 5 MG TAB PO SCH (10:30)
[2022-09-01] MEDS: LIDOCAINE 5% (LIDODERM) PATCH TD SCH (10:31)
[2022-09-01] MEDS: SODIUM CHLORIDE 0.9% NASAL GEL 15GM (AYR) PRN (10:31)
[2022-09-01] MEDS: LIDOCAINE 5% OINT 30GM TUBE EXT SCH ×2 (10:31→21:00)
[2022-09-01] MEDS: DICLOFENAC EPOLAMINE 1.3% PATCH TOP SCH ×2 (10:32→21:47)
[2022-09-01 14:00] VITALS: BP 138/72
[2022-09-01 16:08] VITALS: O2SAT 95
[2022-09-01] MEDS: RIVAROXABAN 10MG TAB (XARELTO) PO SCH (17:01)
[2022-09-01 20:30] VITALS: BP 170/90
[2022-09-01] MEDS ORDERED: amLODIPine 5 MG TAB PO ONE (21:35)
[2022-09-01] MEDS: ATORVASTATIN 20 MG TAB PO SCH (21:45)
[2022-09-01] MEDS: rOPINIRole 1MG TAB PO SCH (21:46)
[2022-09-01 22:47] VITALS: BP 148/80
[2022-09-02] MEDS: ACETAMINOPHEN 500 MG TAB PO SCH ×4 (05:19→23:53)
[2022-09-02 06:00] VITALS: BP 148/72
[2022-09-02] MEDS: FLUTICASONE HFA 220 MCG 12 GM INHALER (FLOVENT) INH SCH ×2 (07:16→19:13)
[2022-09-02 09:08] VITALS: BP 161/91
[2022-09-02] MEDS: tiZANidine 4 MG TAB PO SCH ×2 (09:12→20:58)
[2022-09-02] MEDS: BACLOFEN 10 MG TAB PO SCH ×2 (09:12→20:58)
[2022-09-02] MEDS: GABAPENTIN 400MG CAP PO SCH ×3 (09:12→20:58)
[2022-09-02] MEDS: OMEPRAZOLE 20MG CAP PO SCH (09:12)
[2022-09-02] MEDS: MAGNESIUM OXIDE 400MG TAB (MAG-OX) PO SCH (09:12)
[2022-09-02] MEDS: METOPROLOL SUCC *XL* 25MG TAB (TopROL *XL*) PO SCH (09:12)
[2022-09-02] MEDS: MULTIVITAMINS/MINERALS THERAP 1 TAB PO SCH (09:12)
[2022-09-02] MEDS: DOCUSATE SODIUM 100MG CAPSULE PO SCH ×2 (09:12→20:58)
[2022-09-02] MEDS: LIDOCAINE 5% OINT 30GM TUBE EXT SCH ×2 (09:13→21:02)
[2022-09-02] MEDS: amLODIPine 5 MG TAB PO SCH (09:13)
[2022-09-02] MEDS: LIDOCAINE 5% (LIDODERM) PATCH TD SCH (09:13)
[2022-09-02] MEDS: DICLOFENAC EPOLAMINE 1.3% PATCH TOP SCH ×2 (09:13→20:59)
[2022-09-02 14:00] VITALS: BP 134/86
[2022-09-02] MEDS: RIVAROXABAN 10MG TAB (XARELTO) PO SCH (17:13)
[2022-09-02] MEDS: rOPINIRole 1MG TAB PO SCH (20:58)
[2022-09-02] MEDS: ATORVASTATIN 20 MG TAB PO SCH (20:58)
[2022-09-03] MEDS: ACETAMINOPHEN 500 MG TAB PO SCH ×4 (05:05→23:35)
[2022-09-03 06:00] VITALS: BP 132/82
[2022-09-03] MEDS: MULTIVITAMINS/MINERALS THERAP 1 TAB PO SCH (09:29)
[2022-09-03] MEDS: DICLOFENAC EPOLAMINE 1.3% PATCH TOP SCH ×2 (09:29→20:59)
[2022-09-03] MEDS: LIDOCAINE 5% (LIDODERM) PATCH TD SCH (09:29)
[2022-09-03] MEDS: MAGNESIUM OXIDE 400MG TAB (MAG-OX) PO SCH (09:30)
[2022-09-03] MEDS: METOPROLOL SUCC *XL* 25MG TAB (TopROL *XL*) PO SCH (09:30)
[2022-09-03] MEDS: tiZANidine 4 MG TAB PO SCH ×2 (09:30→21:00)
[2022-09-03] MEDS: BACLOFEN 10 MG TAB PO SCH ×2 (09:31→21:03)
[2022-09-03] MEDS: amLODIPine 5 MG TAB PO SCH (09:31)
[2022-09-03] MEDS: GABAPENTIN 400MG CAP PO SCH ×3 (09:31→20:59)
[2022-09-03] MEDS: DOCUSATE SODIUM 100MG CAPSULE PO SCH ×2 (09:31→21:00)
[2022-09-03] MEDS: OMEPRAZOLE 20MG CAP PO SCH (09:32)
[2022-09-03] MEDS: LIDOCAINE 5% OINT 30GM TUBE EXT SCH ×2 (09:33→21:00)
[2022-09-03] MEDS: FLUTICASONE HFA 220 MCG 12 GM INHALER (FLOVENT) INH SCH ×2 (12:14→19:19)
[2022-09-03] MEDS: RIVAROXABAN 10MG TAB (XARELTO) PO SCH (17:47)
[2022-09-03] MEDS: rOPINIRole 1MG TAB PO SCH (20:59)
[2022-09-03] MEDS: ATORVASTATIN 20 MG TAB PO SCH (21:00)
[2022-09-04 05:25] VITALS: BP 154/93
[2022-09-04] MEDS: ACETAMINOPHEN 500 MG TAB PO SCH ×2 (05:38→12:00)
[2022-09-04] MEDS: FLUTICASONE HFA 220 MCG 12 GM INHALER (FLOVENT) INH SCH (07:18)
[2022-09-04] MEDS: LIDOCAINE 5% (LIDODERM) PATCH TD SCH (08:27)
[2022-09-04 08:28] VITALS: BP 154/93
[2022-09-04] MEDS: MULTIVITAMINS/MINERALS THERAP 1 TAB PO SCH (08:28)
[2022-09-04] MEDS: DICLOFENAC EPOLAMINE 1.3% PATCH TOP SCH (08:28)
[2022-09-04] MEDS: METOPROLOL SUCC *XL* 25MG TAB (TopROL *XL*) PO SCH (08:28)
[2022-09-04] MEDS: OMEPRAZOLE 20MG CAP PO SCH (08:28)
[2022-09-04] MEDS: tiZANidine 4 MG TAB PO SCH (08:29)
[2022-09-04] MEDS: MAGNESIUM OXIDE 400MG TAB (MAG-OX) PO SCH (08:29)
[2022-09-04] MEDS: GABAPENTIN 400MG CAP PO SCH (08:29)
[2022-09-04] MEDS: BACLOFEN 10 MG TAB PO SCH (08:29)
[2022-09-04] MEDS: amLODIPine 5 MG TAB PO SCH (08:29)
[2022-09-04] MEDS: DOCUSATE SODIUM 100MG CAPSULE PO SCH (08:29)
[2022-09-04] MEDS: LIDOCAINE 5% OINT 30GM TUBE EXT SCH (08:30)
[2022-09-04] MEDS: SODIUM CHLORIDE 0.9% NASAL GEL 15GM (AYR) PRN (08:30)
[2022-09-04] MEDS ORDERED: CEFD300C41 PO (10:52)
[2022-09-04] MEDS ORDERED: DICL1PAT6 TOP (10:52)
[2022-09-04] MEDS ORDERED: AMLO1TAB24 PO (10:52)
[2022-09-04] MEDS ORDERED: DICL1GEL3 TOP (11:38)
== END 2022-09-04 12:17 | disposition home or self-care (01) | DRG 59 ==
LOC: M ED 18:44 → EDBD 18:44 → M ED INP 08-27 02:38 → M MSPAV 08-27 03:12
PROVIDERS: ADMIT Internal Medicine; ATTEND Internal Medicine
DX: G11.9 Hereditary ataxia, unspecified (principal); E87.20 Acidosis, unspecified; I16.9 Hypertensive crisis, unspecified; S22.41XA Multiple fractures of ribs, right side, initial encounter for closed fracture; J45.909 Unspecified asthma, uncomplicated; I10 Essential (primary) hypertension; E78.5 Hyperlipidemia, unspecified; K21.9 Gastro-esophageal reflux disease without esophagitis; F41.9 Anxiety disorder, unspecified; R74.01 Elevation of levels of liver transaminase levels; R29.6 Repeated falls; F32.A Depression, unspecified; G25.81 Restless legs syndrome; Z79.899 Other long term (current) drug therapy; Z88.2 Allergy status to sulfonamides; Z88.8 Allergy status to other drugs, medicaments and biological substances; W18.09XA Striking against other object with subsequent fall, initial encounter; Y92.009 Unspecified place in unspecified non-institutional (private) residence as the place of occurrence of the external cause

== ENCOUNTER → 2022-09-16 | Outpatient (REF) | payer MEDICARE, MEDICAID ==
[~2022-09-16] MED LIST changes: +ALBU8.5H INH; +AMLO1TAB24 PO; +AMLO2.5T3 PO; +ARNU1INH3 INH; +ATOR40TA75 PO; +BACL10TA2 PO; +CEFD300C41 PO; +CYAN-1 PO; +DICL1GEL3 TOP; +DICL1PAT6 TOP; +ESTE1TAB4 PO; +LIDO5OIN19 EXT; +MAGN400T35 PO; +METO1TAB32 PO; +OMEP40CA5 PO; +ROPI2TAB3 PO; +TIZA10TA PO; +VITA500054 PO; +VITMTA PO
[2022-09-16 13:07] LABS: ALKALINE PHOSPHATASE 138 U/L (46-116); ALT/SGPT 66 U/L (7.0-40); AST/SGOT 36 U/L (<34); BILIRUBIN,TOTAL 0.6 MG/DL (0.3-1.2); BLOOD UREA NITROGEN 21 MG/DL (9-23); CALCIUM LEVEL 10.1 MG/DL (8.5-10.1); CARBON DIOXIDE LEVEL 28 MMOL/L (20-31); CHLORIDE LEVEL 102 MMOL/L (98-107); CHOLESTEROL LEVEL 200 MG/DL (<200); CHOLESTEROL RISK RATIO 4.68 (<5); CREATININE FOR GFR 0.89 MG/DL (0.55-1.30); GLOMERULAR FILTRATION RATE > 60.0 (>51); GLUCOSE, FASTING 100 MG/DL (60-100); HDL CHOLESTEROL 42.7 MG/DL (>40); LDL CHOLESTEROL 104.7 MG/DL (<100); NON-HDL-C 157.3 MG/DL; POTASSIUM SERUM 4.1 MMOL/L (3.5-5.1); SODIUM LEVEL 138 MMOL/L (136-145); TOTAL PROTEIN 7.1 G/DL (5.7-8.2); TRIGLYCERIDES LEVEL 263 MG/DL (<150)
== END ==
LOC: M LAB REF 12:21
PROVIDERS: ATTEND Nurse Practitioner Family
DX: E78.5 Hyperlipidemia, unspecified (principal)

== ENCOUNTER → 2022-10-02 | Outpatient (CLI) | payer MEDICARE, MEDICAID | LOC: M RAD 16:14 | PROVIDERS: ATTEND Nurse Practitioner Family | DX: R47.81 Slurred speech (principal) ==

== ENCOUNTER 2022-12-15 20:49 | Emergency (ER) | payer MEDICARE, MEDICAID ==
[~2022-12-15] VITALS: Ht 154.9 cm; Wt 72.7 kg
[~2022-12-15 20:49] MED LIST changes: +DICL100G10 TOP; -DICL1GEL3 TOP; -GABA-283 PO; +GABA-284 PO; -ROPI2TAB3 PO; +ROPI2TAB46 PO
[2022-12-15 22:05] LABS: BASO # 0.1 10^3/uL (0.0-0.2); BASO % 0.6 % (0.0-1.0); EOS # 0.2 10^3/uL (0.0-0.5); EOS % 2.8 % (0.0-3.0); HEMATOCRIT 42.5 % (36.0-47.0); HEMOGLOBIN 13.8 g/dl (12.0-15.5); LYMPH # 2.9 10^3/uL (1.5-5.0); LYMPH % 33.4 % (24.0-44.0); MEAN CORPUSCULAR HEMOGLOBIN 29.1 pg (27.0-33.0); MEAN CORPUSCULAR HGB CONC 32.5 g/dl (32.0-36.5); MEAN CORPUSCULAR VOLUME 89.5 fl (80.0-96.0); MONO # 0.6 10^3/uL (0.0-0.8); MONO % 7.4 % (2.0-8.0); NEUTROPHILS # 4.8 10^3/uL (1.5-8.5); NEUTROPHILS % 55.5 % (36.0-66.0); PLATELET COUNT, AUTOMATED 273 10^3/uL (150-450); RED BLOOD COUNT 4.75 10^6/uL (4.00-5.40); WHITE BLOOD COUNT 8.7 10^3/uL (4.0-10.0)
[2022-12-15 22:28] LABS: LIPASE 50 U/L (12-53)
[2022-12-15 22:30] LABS: ALBUMIN 3.8 G/DL (3.2-5.2); ALKALINE PHOSPHATASE 146 U/L (46-116); ALT/SGPT 77 U/L (7.0-40); AST/SGOT 43 U/L (<34); BILIRUBIN,DIRECT 0.2 MG/DL (<0.4); BILIRUBIN,TOTAL 0.5 MG/DL (0.3-1.2); BLOOD UREA NITROGEN 25 MG/DL (9-23); CALCIUM LEVEL 9.6 MG/DL (8.5-10.1); CARBON DIOXIDE LEVEL 30 MMOL/L (20-31); CHLORIDE LEVEL 105 MMOL/L (98-107); CREATININE FOR GFR 0.98 MG/DL (0.55-1.30); GLOMERULAR FILTRATION RATE > 60.0 (>51); GLUCOSE, FASTING 98 MG/DL (60-100); POTASSIUM SERUM 4.7 MMOL/L (3.5-5.1); SODIUM LEVEL 141 MMOL/L (136-145); TOTAL PROTEIN 7.4 G/DL (5.7-8.2)
[2022-12-16 01:44] LABS: CK-MB VALUE MASS 1.4 NG/ML (<3.6)
[2022-12-16 01:45] LABS: CPK CREATINE PHOSPHOKINASE 137 U/L (34-145); MB/CK RELATIVE INDEX 1.02 (< OR =4)
[2022-12-16] MEDS ORDERED: KETOROLAC 30 MG/ML 1ML VIAL IV ONE (01:50)
[2022-12-16] MEDS ORDERED: ISOVUE-370 76% 100ML VIAL As Ordered ONE (02:31)
[2022-12-16] MEDS ORDERED: LASI20TA3 PO (04:41)
[2022-12-16 04:56] VITALS: BP 134/76; TEMP 98.2; O2SAT 98
== END 2022-12-16 04:58 | disposition home or self-care (01) ==
LOC: M ED 20:49
DX: R60.0 Localized edema (principal); R10.9 Unspecified abdominal pain; R11.0 Nausea; R06.02 Shortness of breath; R19.7 Diarrhea, unspecified; I10 Essential (primary) hypertension; E78.5 Hyperlipidemia, unspecified; Z88.2 Allergy status to sulfonamides; Z79.899 Other long term (current) drug therapy
CPT/HCPCS: 71046; 74177; 80048; 80076; 82550; 82553; 83690; 83880; 84484; 85025; 93970; 96374; 99284; J1885; Q9967

== ENCOUNTER → 2022-12-23 | Outpatient (CLI) | payer MEDICARE, MEDICAID ==
[~2022-12-23] MED LIST changes: +LASI20TA3 PO
[2022-12-23 19:06] LABS: BLOOD UREA NITROGEN 18 MG/DL (9-23); CALCIUM LEVEL 9.7 MG/DL (8.5-10.1); CARBON DIOXIDE LEVEL 30 MMOL/L (20-31); CHLORIDE LEVEL 101 MMOL/L (98-107); CREATININE FOR GFR 0.88 MG/DL (0.55-1.30); GLOMERULAR FILTRATION RATE > 60.0 (>51); GLUCOSE, FASTING 96 MG/DL (60-100); POTASSIUM SERUM 4.6 MMOL/L (3.5-5.1); SODIUM LEVEL 139 MMOL/L (136-145)
[2022-12-23 19:10] LABS: THYROID STIMULATING HORMONE 5.495 uIU/ML (0.55-4.78)
[2022-12-23 19:30] LABS: FREE T4 1.15 NG/DL (0.89-1.76)
== END ==
LOC: M WUC 15:22
PROVIDERS: ATTEND Nurse Practitioner Family
DX: J98.11 Atelectasis (principal); R60.0 Localized edema

== ENCOUNTER → 2022-12-26 | Outpatient (REF) | payer MEDICARE, MEDICAID | LOC: M LAB REF 14:37 | PROVIDERS: ATTEND Internal Medicine Gastroenterology | DX: R19.7 Diarrhea, unspecified (principal); R10.30 Lower abdominal pain, unspecified ==

== ENCOUNTER → 2023-01-07 | Outpatient (REF) | payer MEDICARE, MEDICAID | LOC: M LAB REF 18:42 | PROVIDERS: ATTEND Nurse Practitioner Family | DX: R94.6 Abnormal results of thyroid function studies (principal) ==

== ENCOUNTER → 2023-02-11 | Outpatient (REF) | payer MEDICARE, MEDICAID ==
[~2023-02-11] MED LIST changes: -CEFD300C41 PO; +CEFD300C42 PO
[2023-02-11 12:20] LABS: ALKALINE PHOSPHATASE 148 U/L (46-116); ALT/SGPT 83 U/L (7.0-40); AST/SGOT 65 U/L (<34); BILIRUBIN,TOTAL 0.6 MG/DL (0.3-1.2); BLOOD UREA NITROGEN 19 MG/DL (9-23); CALCIUM LEVEL 9.7 MG/DL (8.5-10.1); CARBON DIOXIDE LEVEL 29 MMOL/L (20-31); CHLORIDE LEVEL 101 MMOL/L (98-107); CHOLESTEROL LEVEL 180 MG/DL (<200); CHOLESTEROL RISK RATIO 4.52 (<5); GLOMERULAR FILTRATION RATE > 60.0 (>51); GLUCOSE, FASTING 92 MG/DL (60-100); HDL CHOLESTEROL 39.8 MG/DL (>40); LDL CHOLESTEROL 93.2 MG/DL (<100); NON-HDL-C 140.2 MG/DL; POTASSIUM SERUM 4.5 MMOL/L (3.5-5.1); SODIUM LEVEL 140 MMOL/L (136-145); THYROID STIMULATING HORMONE 4.705 uIU/ML (0.55-4.78); TOTAL PROTEIN 7.3 G/DL (5.7-8.2); TRIGLYCERIDES LEVEL 235 MG/DL (<150)
[2023-02-11 12:25] LABS: BASO % 0.5 % (0.0-1.0); EOS # 0.2 10^3/uL (0.0-0.5); EOS % 2.7 % (0.0-3.0); HEMATOCRIT 45.9 % (36.0-47.0); HEMOGLOBIN 14.7 g/dl (12.0-15.5); LYMPH # 2.8 10^3/uL (1.5-5.0); LYMPH % 34.1 % (24.0-44.0); MEAN CORPUSCULAR HEMOGLOBIN 28.7 pg (27.0-33.0); MEAN CORPUSCULAR VOLUME 89.5 fl (80.0-96.0); MONO # 0.6 10^3/uL (0.0-0.8); MONO % 7.1 % (2.0-8.0); NEUTROPHILS # 4.5 10^3/uL (1.5-8.5); NEUTROPHILS % 55.2 % (36.0-66.0); PLATELET COUNT, AUTOMATED 275 10^3/uL (150-450); RED BLOOD COUNT 5.13 10^6/uL (4.00-5.40); WHITE BLOOD COUNT 8.1 10^3/uL (4.0-10.0)
[2023-02-11 13:05] LABS: HEMOGLOBIN A1c 5.7 % (4.0-6.0)
== END ==
LOC: M LAB REF 11:24
PROVIDERS: ATTEND Nurse Practitioner Family
DX: Z13.228 Encounter for screening for other metabolic disorders (principal); Z79.899 Other long term (current) drug therapy

== ENCOUNTER → 2023-03-13 | Outpatient (CLI) | payer MEDICARE, MEDICAID ==
[~2023-03-13] MED LIST changes: +CEFD1CAP9 PO; -CEFD300C42 PO
== END ==
LOC: M WHC 10:47
PROVIDERS: ATTEND Nurse Practitioner Family
DX: L02.91 Cutaneous abscess, unspecified (principal); M79.89 Other specified soft tissue disorders

== ENCOUNTER → 2023-03-18 | Outpatient (CLI) | payer MEDICARE, MEDICAID | LOC: M WHC 09:41 | PROVIDERS: ATTEND Nurse Practitioner Family | DX: Z12.31 Encounter for screening mammogram for malignant neoplasm of breast (principal) ==

== ENCOUNTER → 2023-05-12 | Outpatient (REF) | payer MEDICARE, MEDICAID ==
[~2023-05-12] MED LIST changes: +LOPI600T PO; +THERTAB52 PO
[2023-05-12 14:16] LABS: ALBUMIN 4.4 G/DL (3.2-5.2); ALKALINE PHOSPHATASE 96 U/L (46-116); ALT/SGPT 64 U/L (7.0-40); AST/SGOT 76 U/L (<34); BILIRUBIN,TOTAL 0.3 MG/DL (0.3-1.2); BLOOD UREA NITROGEN 22 MG/DL (9-23); CALCIUM LEVEL 10.3 MG/DL (8.5-10.1); CARBON DIOXIDE LEVEL 27 MMOL/L (20-31); CHLORIDE LEVEL 103 MMOL/L (98-107); CHOLESTEROL LEVEL 316 MG/DL (<200); CHOLESTEROL RISK RATIO 6.81 (<5); CREATININE FOR GFR 0.96 MG/DL (0.55-1.30); GLOMERULAR FILTRATION RATE > 60.0 (>51); GLUCOSE, FASTING 97 MG/DL (60-100); HDL CHOLESTEROL 46.4 MG/DL (>40); LDL CHOLESTEROL 223.6 MG/DL (<100); NON-HDL-C 269.6 MG/DL; POTASSIUM SERUM 4.5 MMOL/L (3.5-5.1); SODIUM LEVEL 140 MMOL/L (136-145); TOTAL PROTEIN 8.3 G/DL (5.7-8.2); TRIGLYCERIDES LEVEL 230 MG/DL (<150)
== END ==
LOC: M LAB REF 13:02
PROVIDERS: ATTEND Nurse Practitioner Family
DX: R74.8 Abnormal levels of other serum enzymes (principal)

== ENCOUNTER → 2023-05-28 | Outpatient (REF) | payer MEDICARE, MEDICAID ==
[2023-05-28 12:36] LABS: ALBUMIN 4.1 G/DL (3.2-5.2); ALKALINE PHOSPHATASE 114 U/L (46-116); ALT/SGPT 116 U/L (7.0-40); AST/SGOT 97 U/L (<34); BILIRUBIN,TOTAL 0.4 MG/DL (0.3-1.2); BLOOD UREA NITROGEN 20 MG/DL (9-23); CALCIUM LEVEL 9.9 MG/DL (8.5-10.1); CARBON DIOXIDE LEVEL 29 MMOL/L (20-31); CHLORIDE LEVEL 103 MMOL/L (98-107); CHOLESTEROL LEVEL 316 MG/DL (<200); CREATININE FOR GFR 0.95 MG/DL (0.55-1.30); GLOMERULAR FILTRATION RATE > 60.0 (>51); GLUCOSE, FASTING 76 MG/DL (60-100); LDL CHOLESTEROL 211.4 MG/DL (<100); POTASSIUM SERUM 3.9 MMOL/L (3.5-5.1); SODIUM LEVEL 139 MMOL/L (136-145); TOTAL PROTEIN 7.7 G/DL (5.7-8.2); TRIGLYCERIDES LEVEL 318 MG/DL (<150)
== END ==
LOC: M LAB REF 12:01
PROVIDERS: ATTEND Nurse Practitioner Family
DX: E78.5 Hyperlipidemia, unspecified (principal); R74.8 Abnormal levels of other serum enzymes

== ENCOUNTER 2023-05-29 06:33 | Day surgery (SDC) | payer MEDICARE, MEDICAID ==
[~2023-05-29] VITALS: Ht 152.4 cm; Wt 73.9 kg
[2023-05-29] MEDS ORDERED: propofoL 200 MG/20 ML VIAL As Ordered ONE (06:46)
[2023-05-29] MEDS ORDERED: LIDOCAINE 2% 100MG/5ML SDV (FOR ANES.) As Ordered ONE (06:46)
[2023-05-29] MEDS: NS 1,000 ML IV ONE (07:05)
[2023-05-29 08:02] VITALS: TEMP 97.3
[2023-05-29 08:17] VITALS: BP 151/63; O2SAT 96
== END 2023-05-29 08:45 | disposition home or self-care (01) ==
LOC: M OPP 06:33
PROVIDERS: ATTEND Internal Medicine Gastroenterology
DX: Z12.11 Encounter for screening for malignant neoplasm of colon (principal); K63.5 Polyp of colon; K63.89 Other specified diseases of intestine; K64.4 Residual hemorrhoidal skin tags; K64.8 Other hemorrhoids; G47.30 Sleep apnea, unspecified; Z79.51 Long term (current) use of inhaled steroids; Z79.52 Long term (current) use of systemic steroids; Z79.891 Long term (current) use of opiate analgesic; Z79.899 Other long term (current) drug therapy; Z88.2 Allergy status to sulfonamides

== ENCOUNTER → 2023-06-30 | Outpatient (CLI) | payer MEDICARE, MEDICAID | LOC: M RAD 07:32 | PROVIDERS: ATTEND Nurse Practitioner Family | DX: R74.8 Abnormal levels of other serum enzymes (principal) ==

== ENCOUNTER → 2023-07-16 | Outpatient (REF) | payer MEDICARE, MEDICAID ==
[2023-07-16 13:02] LABS: BILIRUBIN,DIRECT 0.2 MG/DL (<0.4); BILIRUBIN,TOTAL 0.8 MG/DL (0.3-1.2); TOTAL PROTEIN 7.4 G/DL (5.7-8.2)
== END ==
LOC: M LAB REF 11:54
PROVIDERS: ATTEND Nurse Practitioner Family
DX: R74.8 Abnormal levels of other serum enzymes (principal)

== ENCOUNTER → 2023-09-17 | Outpatient (REF) | payer MEDICARE, MEDICAID ==
[~2023-09-17] MED LIST changes: +ONDA-282 PO; -ONDA4TAB6 PO
[2023-09-17 17:56] LABS: ALBUMIN 4.1 G/DL (3.2-5.2); BILIRUBIN,DIRECT 0.1 MG/DL (<0.4); BILIRUBIN,TOTAL 0.4 MG/DL (0.3-1.2); CHOLESTEROL RISK RATIO 6.8 (<5); HDL CHOLESTEROL 40.1 MG/DL (>40); LDL CHOLESTEROL 173.3 MG/DL (<100); NON-HDL-C 232.9 MG/DL; TOTAL PROTEIN 7.6 G/DL (5.7-8.2)
== END ==
LOC: M LAB REF 16:28
PROVIDERS: ATTEND Nurse Practitioner Family
DX: R74.8 Abnormal levels of other serum enzymes (principal); E78.5 Hyperlipidemia, unspecified

== ENCOUNTER → 2024-01-20 | Outpatient (REF) | payer MEDICARE, MEDICAID ==
[~2024-01-20] MED LIST changes: +GABA-1172 PO; -GABA-282 PO
[2024-01-20 13:42] LABS: ALBUMIN 4.3 G/DL (3.2-5.2); ALKALINE PHOSPHATASE 135 U/L (46-116); ALT/SGPT 98 U/L (7.0-40); AST/SGOT 114 U/L (<34); BILIRUBIN,TOTAL 0.6 MG/DL (0.3-1.2); BLOOD UREA NITROGEN 25 MG/DL (9-23); CALCIUM LEVEL 10.6 MG/DL (8.3-10.6); CARBON DIOXIDE LEVEL 31 MMOL/L (20-31); CHLORIDE LEVEL 103 MMOL/L (98-107); CHOLESTEROL LEVEL 272 MG/DL (<200); CHOLESTEROL RISK RATIO 6.61 (<5); GLOMERULAR FILTRATION RATE > 60.0 (>45); GLUCOSE, FASTING 107 MG/DL (74-106); HDL CHOLESTEROL 41.1 MG/DL (>40); LDL CHOLESTEROL 175.1 MG/DL (<100); MAGNESIUM LEVEL 2.2 MG/DL (1.8-2.4); NON-HDL-C 230.9 MG/DL; POTASSIUM SERUM 4.1 MMOL/L (3.5-5.1); SODIUM LEVEL 138 MMOL/L (136-145); TOTAL PROTEIN 8.1 G/DL (5.7-8.2); TRIGLYCERIDES LEVEL 279 MG/DL (<150)
[2024-01-20 13:45] LABS: BASO % 0.4 % (0.0-1.0); EOS # 0.2 10^3/uL (0.0-0.5); EOS % 2.3 % (0.0-3.0); HEMATOCRIT 47.8 % (36.0-47.0); HEMOGLOBIN 15.5 g/dl (12.0-15.5); LYMPH # 2.1 10^3/uL (1.5-5.0); LYMPH % 25.6 % (24.0-44.0); MEAN CORPUSCULAR HGB CONC 32.4 g/dl (32.0-36.5); MEAN CORPUSCULAR VOLUME 89.3 fl (80.0-96.0); MONO # 0.6 10^3/uL (0.0-0.8); MONO % 7.9 % (2.0-8.0); NEUTROPHILS # 5.1 10^3/uL (1.5-8.5); NEUTROPHILS % 63.4 % (36.0-66.0); PLATELET COUNT, AUTOMATED 277 10^3/uL (150-450); RED BLOOD COUNT 5.35 10^6/uL (4.00-5.40); THYROID STIMULATING HORMONE 4.297 uIU/ML (0.55-4.78); WHITE BLOOD COUNT 8.1 10^3/uL (4.0-10.0)
[2024-01-20 14:08] LABS: HEMOGLOBIN A1c 5.8 % (4.0-6.0)
== END ==
LOC: M LAB REF 11:53
PROVIDERS: ATTEND Nurse Practitioner Family
DX: E66.9 Obesity, unspecified (principal); E07.9 Disorder of thyroid, unspecified

== ENCOUNTER → 2024-05-10 | Outpatient (REF) | payer MEDICARE, MEDICAID ==
[2024-05-10 15:06] LABS: ALBUMIN 4.1 G/DL (3.2-5.2); BILIRUBIN,DIRECT 0.2 MG/DL (<0.4); BILIRUBIN,TOTAL 0.5 MG/DL (0.3-1.2); CHOLESTEROL RISK RATIO 6.4 (<5); HDL CHOLESTEROL 46.7 MG/DL (>40); LDL CHOLESTEROL 183.5 MG/DL (<100); NON-HDL-C 252.3 MG/DL; TOTAL PROTEIN 7.8 G/DL (5.7-8.2)
== END ==
LOC: M LAB REF 13:35
PROVIDERS: ATTEND Nurse Practitioner Family
DX: E78.5 Hyperlipidemia, unspecified (principal); R74.8 Abnormal levels of other serum enzymes

== ENCOUNTER → 2024-08-03 | Outpatient (REF) | payer MEDICARE, MEDICAID ==
[2024-08-06 14:24] LABS: HPV APTIMA Not Detected (Not Detected)
== END ==
LOC: M SFHCWAGY 12:55
PROVIDERS: ATTEND Nurse Practitioner Family
DX: N73.9 Female pelvic inflammatory disease, unspecified (principal); Z12.4 Encounter for screening for malignant neoplasm of cervix
CPT/HCPCS: 87070; 87624; G0123

== ENCOUNTER → 2024-08-03 | Outpatient (CLI) | payer MEDICARE, MEDICAID | LOC: M WHC 09:52 | PROVIDERS: ATTEND Nurse Practitioner Family | DX: Z12.31 Encounter for screening mammogram for malignant neoplasm of breast (principal); R92.313 Mammographic fatty tissue density, bilateral breasts ==

== ENCOUNTER → 2024-08-06 | Outpatient (REF) | payer MEDICARE, MEDICAID ==
[2024-08-06 13:39] LABS: BILIRUBIN,TOTAL 0.6 MG/DL (0.3-1.2); CALCIUM LEVEL 10.1 MG/DL (8.3-10.6); CHOLESTEROL RISK RATIO 6.3 (<5); CREATININE FOR GFR 0.96 MG/DL (0.55-1.30); GLOMERULAR FILTRATION RATE 67.7 (>45); LDL CHOLESTEROL 167.4 MG/DL (<100); MAGNESIUM LEVEL 2.1 MG/DL (1.8-2.4); POTASSIUM SERUM 4.4 MMOL/L (3.5-5.1); TOTAL PROTEIN 7.2 G/DL (5.7-8.2)
[2024-08-06 13:48] LABS: BASO # 0.1 10^3/uL (0.0-0.2); BASO % 0.8 % (0.0-1.0); EOS # 0.3 10^3/uL (0.0-0.5); EOS % 4.1 % (0.0-3.0); HEMATOCRIT 45.4 % (36.0-47.0); HEMOGLOBIN 14.8 g/dl (12.0-15.5); LYMPH # 2.4 10^3/uL (1.5-5.0); LYMPH % 32.3 % (24.0-44.0); MEAN CORPUSCULAR HEMOGLOBIN 29.3 pg (27.0-33.0); MEAN CORPUSCULAR HGB CONC 32.6 g/dl (32.0-36.5); MEAN CORPUSCULAR VOLUME 89.9 fl (80.0-96.0); MONO # 0.6 10^3/uL (0.0-0.8); MONO % 8.3 % (2.0-8.0); NEUTROPHILS % 54.1 % (36.0-66.0); PLATELET COUNT, AUTOMATED 261 10^3/uL (150-450); RED BLOOD COUNT 5.05 10^6/uL (4.00-5.40); WHITE BLOOD COUNT 7.4 10^3/uL (4.0-10.0)
[2024-08-06 13:49] LABS: HEMOGLOBIN A1c 5.9 % (4.0-6.0)
== END ==
LOC: M LAB REF 12:26
PROVIDERS: ATTEND Nurse Practitioner Family
DX: E66.9 Obesity, unspecified (principal); Z79.899 Other long term (current) drug therapy

== ENCOUNTER → 2024-11-01 | Outpatient (REF) | payer MEDICARE, MEDICAID ==
[2024-11-01 15:58] LABS: ALT/SGPT 71 U/L (7.0-40); AST/SGOT 64 U/L (<34); CALCIUM LEVEL 10.2 MG/DL (8.3-10.6); CARBON DIOXIDE LEVEL 30 MMOL/L (20-31); CHLORIDE LEVEL 99 MMOL/L (98-107); CHOLESTEROL LEVEL 293 MG/DL (<200); CHOLESTEROL RISK RATIO 6.94 (<5); CREATININE FOR GFR 1.24 MG/DL (0.55-1.30); GLOMERULAR FILTRATION RATE 49.5 (>45); NON-HDL-C 250.8 MG/DL; POTASSIUM SERUM 4.3 MMOL/L (3.5-5.1); SODIUM LEVEL 142 MMOL/L (136-145); TRIGLYCERIDES LEVEL 433 MG/DL (<150)
[2024-11-01 16:04] LABS: ESTIMATED AVERAGE GLUCOSE 123.0 MG/DL (60-110)
== END ==
LOC: M LAB REF 14:33
PROVIDERS: ATTEND Student in an Organized Health Care Education/Training Program
DX: E78.5 Hyperlipidemia, unspecified (principal); R74.8 Abnormal levels of other serum enzymes; R73.03 Prediabetes

== ENCOUNTER → 2024-11-10 | Outpatient (CLI) | payer MEDICARE, MEDICAID ==
[~2024-11-10] MED LIST changes: +ISOVUE-370 76% 100 ML VIAL As Ordered ONE
== END ==
LOC: M RAD 15:40
PROVIDERS: ATTEND Student in an Organized Health Care Education/Training Program
DX: N28.89 Other specified disorders of kidney and ureter (principal)
CPT/HCPCS: 74170; Q9967

== ENCOUNTER → 2024-12-15 | Outpatient (REF) | payer MEDICARE, MEDICAID ==
[~2024-12-15] MED LIST changes: -ISOVUE-370 76% 100 ML VIAL As Ordered ONE
== END ==
LOC: M LAB REF 14:28
PROVIDERS: ATTEND Student in an Organized Health Care Education/Training Program
DX: R30.0 Dysuria (principal)

== ENCOUNTER → 2024-12-27 | Outpatient (REF) | payer MEDICARE, MEDICAID ==
[2024-12-27 17:11] LABS: ALT/SGPT 66.0 U/L (7.0-40); AST/SGOT 50.0 U/L (<34)
[2024-12-28 14:57] LABS: PLATELET COUNT, AUTOMATED 301 10^3/uL (150-450)
== END ==
LOC: M LAB REF 16:14
PROVIDERS: ATTEND Student in an Organized Health Care Education/Training Program
DX: E78.5 Hyperlipidemia, unspecified (principal); R74.8 Abnormal levels of other serum enzymes

== ENCOUNTER → 2025-01-24 | Outpatient (REF) | payer MEDICARE, MEDICAID ==
[2025-01-24 13:33] LABS: CALCIUM LEVEL 9.9 MG/DL (8.3-10.6); CARBON DIOXIDE LEVEL 28 MMOL/L (20-31); CHLORIDE LEVEL 102 MMOL/L (98-107); CHOLESTEROL LEVEL 262 MG/DL (<200); CHOLESTEROL RISK RATIO 5.41 (<5); CREATININE FOR GFR 1.08 MG/DL (0.55-1.30); GLOMERULAR FILTRATION RATE 58.4 (>45); NON-HDL-C 213.6 MG/DL; POTASSIUM SERUM 4.1 MMOL/L (3.5-5.1); SODIUM LEVEL 143 MMOL/L (136-145); TRIGLYCERIDES LEVEL 419 MG/DL (<150)
[2025-01-24 13:40] LABS: CREATININE, URINE 21.0 MG/DL; MALB URINE SIEMENS < 3.0 MG/L
== END ==
LOC: M LAB REF 12:07
PROVIDERS: ATTEND Student in an Organized Health Care Education/Training Program
DX: R35.0 Frequency of micturition (principal); I10 Essential (primary) hypertension; M25.471 Effusion, right ankle; E66.812 Obesity, class 2; E78.5 Hyperlipidemia, unspecified

== ENCOUNTER → 2025-02-28 | Outpatient (REF) | payer MEDICARE, MEDICAID ==
[2025-02-28 13:13] LABS: ALT/SGPT 26.0 U/L (7.0-40); AST/SGOT 31.0 U/L (<34); CALCIUM LEVEL 9.6 MG/DL (8.3-10.6); CARBON DIOXIDE LEVEL 31.0 MMOL/L (20-31); CHLORIDE LEVEL 97.0 MMOL/L (98-107); CHOLESTEROL LEVEL 198.0 MG/DL (<200); CHOLESTEROL RISK RATIO 5.0 (<5); CREATININE FOR GFR 0.94 MG/DL (0.55-1.30); GLOMERULAR FILTRATION RATE 69.0 (>45); LDL CHOLESTEROL 101.8 MG/DL (<100); NON-HDL-C 158.4 MG/DL; POTASSIUM SERUM 4.0 MMOL/L (3.5-5.1); SODIUM LEVEL 139.0 MMOL/L (136-145); TRIGLYCERIDES LEVEL 283.0 MG/DL (<150)
== END ==
LOC: M LAB REF 11:58
PROVIDERS: ATTEND Student in an Organized Health Care Education/Training Program
DX: E78.5 Hyperlipidemia, unspecified (principal)

== ENCOUNTER 2025-03-01 12:03 | Emergency (ER) | payer MEDICARE, MEDICAID ==
[~2025-03-01] VITALS: Ht 154.9 cm; Wt 75.1 kg
[2025-03-01 16:06] VITALS: BP 146/67; TEMP 97.3; O2SAT 94
== END 2025-03-01 16:10 | disposition home or self-care (01) ==
LOC: M ED 12:03
DX: K02.9 Dental caries, unspecified (principal); Z79.899 Other long term (current) drug therapy; Z88.2 Allergy status to sulfonamides